=== PATIENT | female | born 1990 | race Caucasian/White ===

== ENCOUNTER 2017-04-24 11:50 | Emergency (ER) | payer MEDICAID, SELFPAY ==
[2017-04-24] MEDS: CYCLOBENZAPRINE 10 MG TAB PO ×3 (14:00)
[2017-04-24] MEDS: KETOROLAC 60 MG/2 ML VIAL (J1885) IM ×3 (14:02)
== END 2017-04-24 14:31 | disposition home or self-care (01) ==
LOC: M ED 11:50
DX: S30.0XXA Contusion of lower back and pelvis, initial encounter (principal); W19.XXXA Unspecified fall, initial encounter; Y92.9 Unspecified place or not applicable; Y93.9 Activity, unspecified; M54.42 Lumbago with sciatica, left side; L03.211 Cellulitis of face; F31.9 Bipolar disorder, unspecified; F41.9 Anxiety disorder, unspecified; J45.909 Unspecified asthma, uncomplicated; F17.200 Nicotine dependence, unspecified, uncomplicated; Z79.899 Other long term (current) drug therapy; Z91.018 Allergy to other foods
CPT/HCPCS: J1885

== ENCOUNTER 2017-06-05 10:34 | Emergency (ER) | payer MEDICAID ==
[2017-06-05] MEDS: BACTRIM 160MG/800MG DS TAB PO (11:26)
[2017-06-05] MEDS: LIDOCAINE 2% W/EPIN INJ 20ML **PRES FREE INJ (11:53)
[2017-06-05] MEDS: ACETAMINOPHEN 325 MG TAB PO (12:45)
== END 2017-06-05 14:05 | disposition home or self-care (01) ==
LOC: M ED 10:34
DX: L02.411 Cutaneous abscess of right axilla (principal); N63.10 Unspecified lump in the right breast, unspecified quadrant; F17.200 Nicotine dependence, unspecified, uncomplicated; Z91.018 Allergy to other foods; Z79.899 Other long term (current) drug therapy
CPT/HCPCS: 76642

== ENCOUNTER 2017-07-09 13:16 | Emergency (ER) | payer OTHER, MEDICAID ==
[2017-07-09 15:36] LABS: ANION GAP 3 MEQ/L (8-16); BLOOD UREA NITROGEN 9 MG/DL (7-18); CALCIUM LEVEL 8.9 MG/DL (8.5-10.1); CARBON DIOXIDE LEVEL 29 MEQ/L (21-32); CHLORIDE LEVEL 108 MEQ/L (98-107); CREATININE FOR GFR 0.86 MG/DL (0.55-1.30); FREE THYROXINE INDEX 2.6 % (1.3-4.8); GLOMERULAR FILTRATION RATE > 60.0 (>60); GLUCOSE, FASTING 120 MG/DL (70-100); POTASSIUM SERUM 4.1 MEQ/L (3.5-5.1); SODIUM LEVEL 140 MEQ/L (136-145); T UPTAKE 32 % (30-39)
[2017-07-09 15:39] LABS: LITHIUM LEVEL 1.13 MEQ/L (0.60-1.20)
== END 2017-07-09 16:32 | disposition home or self-care (01) ==
LOC: M ED 13:16
DX: Z76.0 Encounter for issue of repeat prescription (principal); F31.9 Bipolar disorder, unspecified; M54.9 Dorsalgia, unspecified; Z91.018 Allergy to other foods; Z79.899 Other long term (current) drug therapy
CPT/HCPCS: 80178

== ENCOUNTER → 2017-07-23 | Outpatient (REF) | payer OTHER ==
[2017-07-23 16:02] LABS: APPEARANCE, URINE CLEAR (CLEAR); BACTERIA, URINE AUTO 1+ (NEGATIVE); BILIRUBIN, URINE AUTO NEGATIVE (NEGATIVE); BLOOD, URINE BLOOD NEGATIVE (NEGATIVE); COLOR, URINE STRAW (YELLOW); GLUCOSE, URINE (UA) AUTO NEGATIVE (NEGATIVE); KETONE, URINE AUTO NEGATIVE (NEGATIVE); LEUKOCYTE ESTERASE, URINE AUTO NEGATIVE (NEGATIVE); NITRITE, URINE AUTO NEGATIVE (NEGATIVE); PROTEIN, URINE AUTO NEGATIVE (NEGATIVE); RBC, URINE AUTO 1 /HPF (0-3); SPECIFIC GRAVITY URINE AUTO 1.003 (1.002-1.035); SQUAMOUS EPITHELIAL CELL UR AU 2 /HPF (0-6); UROBILINOGEN, URINE AUTO 0.2 mg/dL (0.0-2.0); WBC, URINE AUTO 0 /HPF (0-3)
== END ==
LOC: M SFHCPLAZ 15:37
DX: R32 Unspecified urinary incontinence (principal)

== ENCOUNTER → 2017-07-27 | Outpatient (REF) | payer OTHER ==
[2017-07-27 12:21] LABS: BASO % 0.5 % (0.0-1.0); EOS # 0.3 10^3/uL (0.0-0.50); EOS % 3.2 % (0.0-3.0); HEMATOCRIT 36.2 % (36.0-47.0); HEMOGLOBIN 11.7 g/dl (12.0-15.5); IMMATURE GRANULOCYTE % 0.4 % (0-3.0); LYMPH # 1.8 10^3/uL (1.5-6.5); LYMPH % 22.4 % (24.0-44.0); MEAN CORPUSCULAR HEMOGLOBIN 29.2 pg (27.0-33.0); MEAN CORPUSCULAR HGB CONC 32.3 g/dl (32.0-36.5); MEAN CORPUSCULAR VOLUME 90.3 fl (80.0-96.0); MONO # 0.4 10^3/uL (0.0-0.8); MONO % 4.5 % (0.0-5.0); NEUTROPHILS # 5.4 10^3/uL (1.8-7.7); PLATELET COUNT, AUTOMATED 346 10^3/uL (150-450); RED BLOOD COUNT 4.01 10^6/uL (4.00-5.40); RED CELL DISTRIBUTION WIDTH 13.4 % (11.5-14.5); WHITE BLOOD COUNT 7.8 10^3/uL (4.0-10.0)
[2017-07-27 12:33] LABS: AMORPHOUS SEDIMENT SMALL (NEGATIVE); APPEARANCE, URINE CLEAR (CLEAR); BACTERIA, URINE AUTO 1+ (NEGATIVE); BILIRUBIN, URINE AUTO NEGATIVE (NEGATIVE); BLOOD, URINE BLOOD NEGATIVE (NEGATIVE); COLOR, URINE YELLOW (YELLOW); GLUCOSE, URINE (UA) AUTO NEGATIVE (NEGATIVE); KETONE, URINE AUTO NEGATIVE (NEGATIVE); LEUKOCYTE ESTERASE, URINE AUTO 1+ (NEGATIVE); NITRITE, URINE AUTO NEGATIVE (NEGATIVE); PROTEIN, URINE AUTO NEGATIVE (NEGATIVE); RBC, URINE AUTO 1 /HPF (0-3); SPECIFIC GRAVITY URINE AUTO 1.006 (1.002-1.035); SQUAMOUS EPITHELIAL CELL UR AU 4 /HPF (0-6); UROBILINOGEN, URINE AUTO 0.2 mg/dL (0.0-2.0); WBC, URINE AUTO 2 /HPF (0-3)
[2017-07-27 12:56] LABS: PTH INTACT 59.7 PG/ML (18.5-88.0); TOTAL 25(OH) VITAMIN D 24.2 NG/ML (30.0-100.0)
[2017-07-27 12:58] LABS: ALBUMIN 3.7 GM/DL (3.2-5.2); ALBUMIN/GLOBULIN RATIO 1.16 (1.00-1.93); ALKALINE PHOSPHATASE 85 U/L (45-117); ALT/SGPT 21 U/L (12-78); ANION GAP 7 MEQ/L (8-16); AST/SGOT 10 U/L (7-37); BILIRUBIN,TOTAL 0.3 MG/DL (0.2-1.0); BLOOD UREA NITROGEN 7 MG/DL (7-18); CALCIUM LEVEL 8.3 MG/DL (8.5-10.1); CARBON DIOXIDE LEVEL 27 MEQ/L (21-32); CHLORIDE LEVEL 109 MEQ/L (98-107); CHOLESTEROL LEVEL 187 MG/DL (<200); CHOLESTEROL RISK RATIO 6.448 (<5); CREATININE FOR GFR 0.89 MG/DL (0.55-1.30); GLOMERULAR FILTRATION RATE > 60.0 (>60); GLUCOSE, FASTING 100 MG/DL (70-100); HDL CHOLESTEROL 29 MG/DL (>40); LDL CHOLESTEROL 124.8 MG/DL (<100); NON-HDL-C 158 MG/DL; POTASSIUM SERUM 4.3 MEQ/L (3.5-5.1); SODIUM LEVEL 143 MEQ/L (136-145); TOTAL PROTEIN 6.9 GM/DL (6.4-8.2); TRIGLYCERIDES LEVEL 166 MG/DL (<150)
[2017-07-27 13:17] LABS: ESTIMATED AVERAGE GLUCOSE 91 MG/DL (60-110); HEMOGLOBIN A1c 4.8 %
[2017-07-27 17:47] LABS: FREE T4 0.85 NG/DL (0.76-1.46)
== END ==
LOC: M LABDRAW1 11:03
DX: F31.9 Bipolar disorder, unspecified (principal); J45.909 Unspecified asthma, uncomplicated; E66.9 Obesity, unspecified; Z13.220 Encounter for screening for lipoid disorders; R32 Unspecified urinary incontinence; E55.9 Vitamin D deficiency, unspecified
CPT/HCPCS: 84443

== ENCOUNTER 2017-07-30 19:48 | Emergency (ER) | payer OTHER ==
[2017-07-30 21:05] LABS: HEMATOCRIT 37.6 % (36.0-47.0); HEMOGLOBIN 12.3 g/dl (12.0-15.5); MEAN CORPUSCULAR HEMOGLOBIN 29.5 pg (27.0-33.0); MEAN CORPUSCULAR HGB CONC 32.7 g/dl (32.0-36.5); MEAN CORPUSCULAR VOLUME 90.2 fl (80.0-96.0); PLATELET COUNT, AUTOMATED 330 10^3/uL (150-450); RED BLOOD COUNT 4.17 10^6/uL (4.00-5.40); RED CELL DISTRIBUTION WIDTH 13.3 % (11.5-14.5); WHITE BLOOD COUNT 7.6 10^3/uL (4.0-10.0)
[2017-07-30 21:24] LABS: CONTROL LINE HCG INT CTR LINE PRESENT; HCG, SERUM QUALITATIVE NEGATIVE (NEGATIVE)
[2017-07-30 21:29] LABS: AMPHETAMINES LEVEL URINE NEGATIVE (NEGATIVE); BARBITURATES URINE NEGATIVE (NEGATIVE); BENZODIAZEPINES URINE NEGATIVE (NEGATIVE); CANNABINOIDS URINE NEGATIVE (NEGATIVE); COCAINE METABOLITE URINE NEGATIVE (NEGATIVE); METHADONE URINE NEGATIVE (NEGATIVE); OPIATES URINE NEGATIVE (NEGATIVE); PHENCYCLIDINE URINE NEGATIVE (NEGATIVE)
[2017-07-30 21:50] LABS: ACETAMINOPHEN LEVEL < 2.0 UG/ML (10.0-30.0); ALBUMIN/GLOBULIN RATIO 1.11 (1.00-1.93); ALKALINE PHOSPHATASE 97 U/L (45-117); ALT/SGPT 20 U/L (12-78); ANION GAP 6 MEQ/L (8-16); AST/SGOT 11 U/L (7-37); BILIRUBIN,DIRECT < 0.1 MG/DL (0.0-0.2); BILIRUBIN,TOTAL 0.3 MG/DL (0.2-1.0); BLOOD UREA NITROGEN 5 MG/DL (7-18); CALCIUM LEVEL 8.7 MG/DL (8.5-10.1); CARBON DIOXIDE LEVEL 29 MEQ/L (21-32); CHLORIDE LEVEL 107 MEQ/L (98-107); CREATININE FOR GFR 0.91 MG/DL (0.55-1.30); ETHYL ALCOHOL (ETHANOL) < 0.003 % (0.000-0.010); GLOMERULAR FILTRATION RATE > 60.0 (>60); GLUCOSE, FASTING 91 MG/DL (70-100); POTASSIUM SERUM 4.1 MEQ/L (3.5-5.1); SALICYLATE LEVEL 1.8 MG/DL (5.0-30.0); SODIUM LEVEL 142 MEQ/L (136-145); TOTAL PROTEIN 7.6 GM/DL (6.4-8.2)
[2017-07-30 21:51] LABS: LITHIUM LEVEL 0.37 MEQ/L (0.60-1.20)
[2017-08-02 14:12] LABS: LAMOTRIGINE (LAMICTAL) 1.8 ug/mL (2.0-20.0)
== END 2017-07-30 23:23 | disposition home or self-care (01) ==
LOC: M ED 19:48
DX: Z76.0 Encounter for issue of repeat prescription (principal); J45.909 Unspecified asthma, uncomplicated; F41.9 Anxiety disorder, unspecified; F33.9 Major depressive disorder, recurrent, unspecified; Z79.899 Other long term (current) drug therapy; Z91.018 Allergy to other foods; F17.210 Nicotine dependence, cigarettes, uncomplicated
CPT/HCPCS: 80320

== ENCOUNTER 2017-08-04 11:08 | Emergency (ER) | payer OTHER ==
[2017-08-04] MEDS: NS 1,000 ML IV (12:01)
[2017-08-04] MEDS: ONDANSETRON 4MG/2ML VIAL (J2405) IV (12:01)
[2017-08-04] MEDS: MORPHINE 4 MG/ML 1ML VIAL/SYRINGE (J2270) IV (12:02)
[2017-08-04] MEDS: AMPICILLIN SOD/SULBACTAM SOD 3 GM in D5W MINI-BAG PLUS 100 ML IV (12:02)
[2017-08-04 12:11] LABS: BASO % 0.4 % (0.0-1.0); EOS # 0.3 10^3/uL (0.0-0.50); EOS % 2.6 % (0.0-3.0); HEMATOCRIT 35.7 % (36.0-47.0); IMMATURE GRANULOCYTE % 0.2 % (0-3.0); LYMPH # 1.4 10^3/uL (1.5-6.5); LYMPH % 15.1 % (24.0-44.0); MEAN CORPUSCULAR HEMOGLOBIN 29.7 pg (27.0-33.0); MEAN CORPUSCULAR HGB CONC 33.6 g/dl (32.0-36.5); MEAN CORPUSCULAR VOLUME 88.4 fl (80.0-96.0); MONO # 0.5 10^3/uL (0.0-0.8); MONO % 5.4 % (0.0-5.0); NEUTROPHILS # 7.2 10^3/uL (1.8-7.7); NEUTROPHILS % 76.3 % (36.0-66.0); PLATELET COUNT, AUTOMATED 333 10^3/uL (150-450); RED BLOOD COUNT 4.04 10^6/uL (4.00-5.40); RED CELL DISTRIBUTION WIDTH 13.3 % (11.5-14.5); WHITE BLOOD COUNT 9.4 10^3/uL (4.0-10.0)
[2017-08-04 12:44] LABS: ANION GAP 5 MEQ/L (8-16); BLOOD UREA NITROGEN 9 MG/DL (7-18); CARBON DIOXIDE LEVEL 26 MEQ/L (21-32); CHLORIDE LEVEL 109 MEQ/L (98-107); CREATININE FOR GFR 0.79 MG/DL (0.55-1.30); GLOMERULAR FILTRATION RATE > 60.0 (>60); GLUCOSE, FASTING 88 MG/DL (70-100); POTASSIUM SERUM 4.4 MEQ/L (3.5-5.1); SODIUM LEVEL 140 MEQ/L (136-145)
[2017-08-04 12:44] LABS: LACTIC ACID SEPSIS PROTOCOL 0.9 MMOL/L (0.4-2.0)
[2017-08-04 12:45] LABS: ALBUMIN 3.8 GM/DL (3.2-5.2); ALBUMIN/GLOBULIN RATIO 1.09 (1.00-1.93); ALKALINE PHOSPHATASE 97 U/L (45-117); ALT/SGPT 23 U/L (12-78); AST/SGOT 13 U/L (7-37); BILIRUBIN,DIRECT < 0.1 MG/DL (0.0-0.2); BILIRUBIN,TOTAL 0.2 MG/DL (0.2-1.0); C REACTIVE PROTEIN QUANTITATIV 2.11 MG/DL (0.00-0.30); CALCIUM LEVEL 8.7 MG/DL (8.5-10.1); TOTAL PROTEIN 7.3 GM/DL (6.4-8.2)
[2017-08-04] MEDS ORDERED: ISOVUE-370 76% 100ML VIAL (Q9967) As Ordered (13:01)
[2017-08-04 13:10] LABS: LITHIUM LEVEL 0.64 MEQ/L (0.60-1.20)
[2017-08-04] MEDS: PERCOCET 5MG/325MG TAB PO (14:29)
== END 2017-08-04 14:39 | disposition home or self-care (01) ==
LOC: M ED 11:08
DX: J01.00 Acute maxillary sinusitis, unspecified (principal); R68.84 Jaw pain; J45.909 Unspecified asthma, uncomplicated; F32.9 Major depressive disorder, single episode, unspecified; F17.210 Nicotine dependence, cigarettes, uncomplicated; Z91.018 Allergy to other foods; Z79.899 Other long term (current) drug therapy
CPT/HCPCS: J2270

== ENCOUNTER 2017-08-05 09:01 | Inpatient (IN) | payer OTHER ==
[2017-08-05] MEDS: dexameTHASONE 4 MG/ML 1ML VIAL (J1100) IV (09:51)
[2017-08-05] MEDS: NS 1,000 ML IV ×2 (09:52→17:57)
[2017-08-05 10:02] LABS: BASO % 0.3 % (0.0-1.0); EOS # 0.2 10^3/uL (0.0-0.50); EOS % 1.4 % (0.0-3.0); HEMATOCRIT 35.9 % (36.0-47.0); IMMATURE GRANULOCYTE % 0.4 % (0-3.0); LYMPH # 1.7 10^3/uL (1.5-6.5); LYMPH % 13.9 % (24.0-44.0); MEAN CORPUSCULAR HEMOGLOBIN 29.7 pg (27.0-33.0); MEAN CORPUSCULAR HGB CONC 33.4 g/dl (32.0-36.5); MEAN CORPUSCULAR VOLUME 88.9 fl (80.0-96.0); MONO # 0.6 10^3/uL (0.0-0.8); MONO % 4.8 % (0.0-5.0); NEUTROPHILS # 9.5 10^3/uL (1.8-7.7); NEUTROPHILS % 79.2 % (36.0-66.0); PLATELET COUNT, AUTOMATED 325 10^3/uL (150-450); RED BLOOD COUNT 4.04 10^6/uL (4.00-5.40); RED CELL DISTRIBUTION WIDTH 13.5 % (11.5-14.5)
[2017-08-05 10:06] LABS: KETONE, URINE AUTO RFX NEGATIVE (NEGATIVE); LEUKOCYTE ESTERASE UR AUTO RFX NEGATIVE (NEGATIVE); MUCUS, URINE RFX SMALL (NEGATIVE); NITRITE, URINE AUTO RFX NEGATIVE (NEGATIVE); RBC, URINE AUTO RFX 0 /HPF (0-3); SPECIFIC GRAVITY UR AUTO RFX 1.004 (1.002-1.035); SQUAM EPITHELIAL CELL UR AURFX 6 /HPF (0-6); WBC, URINE AUTO RFX 1 /HPF (0-3)
[2017-08-05 10:15] LABS: INR 0.91; PROTHROMBIN TIME 12.3 SECONDS (12.4-14.5)
[2017-08-05 10:16] LABS: PARTIAL THROMBOPLASTIN TIME 34.7 SECONDS (26.8-37.9)
[2017-08-05 10:22] LABS: ERYTHROCYTE SEDIMENTATION RATE 29 mm/hr (0-20)
[2017-08-05] MEDS: PERCOCET 5MG/325MG TAB PO ×4 (10:25→21:12)
[2017-08-05 10:30] LABS: ALBUMIN 3.8 GM/DL (3.2-5.2); ALBUMIN/GLOBULIN RATIO 1.12 (1.00-1.93); ALKALINE PHOSPHATASE 114 U/L (45-117); ALT/SGPT 19 U/L (12-78); ANION GAP 4 MEQ/L (8-16); AST/SGOT 16 U/L (7-37); BILIRUBIN,DIRECT < 0.1 MG/DL (0.0-0.2); BILIRUBIN,TOTAL 0.5 MG/DL (0.2-1.0); BLOOD UREA NITROGEN 6 MG/DL (7-18); C REACTIVE PROTEIN QUANTITATIV 6.04 MG/DL (0.00-0.30); CALCIUM LEVEL 8.5 MG/DL (8.5-10.1); CARBON DIOXIDE LEVEL 28 MEQ/L (21-32); CHLORIDE LEVEL 107 MEQ/L (98-107); CREATININE FOR GFR 0.65 MG/DL (0.55-1.30); GLOMERULAR FILTRATION RATE > 60.0 (>60); GLUCOSE, FASTING 95 MG/DL (70-100); POTASSIUM SERUM 4.3 MEQ/L (3.5-5.1); SODIUM LEVEL 139 MEQ/L (136-145); TOTAL PROTEIN 7.2 GM/DL (6.4-8.2)
[2017-08-05] MEDS: AMPICILLIN SOD/SULBACTAM SOD 3 GM in D5W MINI-BAG PLUS 100 ML IV (10:39)
[2017-08-05] MEDS ORDERED: ISOVUE-370 76% 100ML VIAL (Q9967) As Ordered (13:16)
[2017-08-05 14:11] LABS: BEDSIDE GLUCOSE 126 MG/DL (70-105)
[2017-08-05] MEDS ORDERED: MORPHINE 4 MG/ML 1ML VIAL/SYRINGE (J2270) IV (17:45)
[2017-08-05] MEDS ORDERED: IPRATROPIUM 0.5MG/ALBUTEROL 2.5MG INH SOL UD 3ML (DUONEB)(J7620) NEB (17:45)
[2017-08-05] MEDS ORDERED: ONDANSETRON 4MG/2ML VIAL (J2405) IV (17:45)
[2017-08-05] MEDS: PIPERACILLIN/TAZOBACTAM SOD 3.375 GM in D5W MINI-BAG PLUS 50 ML IV ×2 (17:57→23:50)
[2017-08-05] MEDS: hydrOXYzine 50 MG TAB PO (17:58)
[2017-08-05] MEDS: IPRATROPIUM 0.5MG/ALBUTEROL 2.5MG INH SOL UD 3ML (DUONEB)(J7620) NEB (20:00)
[2017-08-05] MEDS: SENOKOT S TAB PO (20:54)
[2017-08-05] MEDS: AMITRIPTYLINE 50 MG TAB PO (20:54)
[2017-08-05] MEDS: cloNIDine 0.1 MG TAB PO (20:54)
[2017-08-05] MEDS: HEPARIN SOD (PORCINE) 5000 UNITS/ML VIAL SC (20:55)
[2017-08-05] MEDS: LITHIUM CARBONATE 300 MG CAP PO (20:55)
[2017-08-05] MEDS: lamoTRIgine 100MG TAB PO (20:55)
[2017-08-06] MEDS: IPRATROPIUM 0.5MG/ALBUTEROL 2.5MG INH SOL UD 3ML (DUONEB)(J7620) NEB ×4 (02:00→20:00)
[2017-08-06] MEDS: PERCOCET 5MG/325MG TAB PO ×6 (04:29→22:54)
[2017-08-06] MEDS: PIPERACILLIN/TAZOBACTAM SOD 3.375 GM in D5W MINI-BAG PLUS 50 ML IV (05:04)
[2017-08-06] MEDS: HEPARIN SOD (PORCINE) 5000 UNITS/ML VIAL SC ×3 (05:05→21:22)
[2017-08-06 06:50] LABS: HEMATOCRIT 32.5 % (36.0-47.0); HEMOGLOBIN 10.5 g/dl (12.0-15.5); MEAN CORPUSCULAR HEMOGLOBIN 29.2 pg (27.0-33.0); MEAN CORPUSCULAR HGB CONC 32.3 g/dl (32.0-36.5); MEAN CORPUSCULAR VOLUME 90.3 fl (80.0-96.0); PLATELET COUNT, AUTOMATED 291 10^3/uL (150-450); RED CELL DISTRIBUTION WIDTH 13.7 % (11.5-14.5)
[2017-08-06 07:20] LABS: ANION GAP 7 MEQ/L (8-16); BLOOD UREA NITROGEN 5 MG/DL (7-18); CALCIUM LEVEL 8.4 MG/DL (8.5-10.1); CARBON DIOXIDE LEVEL 25 MEQ/L (21-32); CHLORIDE LEVEL 109 MEQ/L (98-107); CREATININE FOR GFR 0.67 MG/DL (0.55-1.30); GLOMERULAR FILTRATION RATE > 60.0 (>60); GLUCOSE, FASTING 111 MG/DL (70-100); MAGNESIUM LEVEL 2.5 MG/DL (1.8-2.4); POTASSIUM SERUM 4.1 MEQ/L (3.5-5.1); SODIUM LEVEL 141 MEQ/L (136-145)
[2017-08-06 07:21] LABS: LITHIUM LEVEL 0.51 MEQ/L (0.60-1.20)
[2017-08-06] MEDS: lamoTRIgine 100MG TAB PO ×2 (09:14→21:21)
[2017-08-06] MEDS: SENOKOT S TAB PO ×2 (09:14→21:21)
[2017-08-06] MEDS: VITAMIN D 1,000 INTERNATIONAL UNITS TABLET PO (09:15)
[2017-08-06] MEDS: LITHIUM CARBONATE 300 MG CAP PO ×2 (09:18→21:21)
[2017-08-06] MEDS: ATORVASTATIN 20 MG TAB PO (09:18)
[2017-08-06] MEDS: cloNIDine 0.1 MG TAB PO ×2 (09:19→21:22)
[2017-08-06] MEDS: AMPICILLIN SOD/SULBACTAM SOD 3 GM in D5W MINI-BAG PLUS 100 ML IV ×3 (12:37→23:00)
[2017-08-06] MEDS: AMITRIPTYLINE 50 MG TAB PO (21:21)
[2017-08-07] MEDS: IPRATROPIUM 0.5MG/ALBUTEROL 2.5MG INH SOL UD 3ML (DUONEB)(J7620) NEB ×4 (01:33→20:00)
[2017-08-07] MEDS: PERCOCET 5MG/325MG TAB PO ×4 (05:56→23:37)
[2017-08-07] MEDS: AMPICILLIN SOD/SULBACTAM SOD 3 GM in D5W MINI-BAG PLUS 100 ML IV ×5 (05:57→23:37)
[2017-08-07] MEDS: HEPARIN SOD (PORCINE) 5000 UNITS/ML VIAL SC ×3 (05:57→20:55)
[2017-08-07 06:24] LABS: HEMATOCRIT 36.1 % (36.0-47.0); HEMOGLOBIN 11.3 g/dl (12.0-15.5); MEAN CORPUSCULAR HEMOGLOBIN 28.9 pg (27.0-33.0); MEAN CORPUSCULAR HGB CONC 31.3 g/dl (32.0-36.5); MEAN CORPUSCULAR VOLUME 92.3 fl (80.0-96.0); PLATELET COUNT, AUTOMATED 294 10^3/uL (150-450); RED BLOOD COUNT 3.91 10^6/uL (4.00-5.40); WHITE BLOOD COUNT 6.8 10^3/uL (4.0-10.0)
[2017-08-07 06:39] LABS: ANION GAP 4 MEQ/L (8-16); BLOOD UREA NITROGEN 6 MG/DL (7-18); C REACTIVE PROTEIN QUANTITATIV 1.95 MG/DL (0.00-0.30); CALCIUM LEVEL 8.4 MG/DL (8.5-10.1); CARBON DIOXIDE LEVEL 28 MEQ/L (21-32); CHLORIDE LEVEL 110 MEQ/L (98-107); CREATININE FOR GFR 0.75 MG/DL (0.55-1.30); GLOMERULAR FILTRATION RATE > 60.0 (>60); GLUCOSE, FASTING 90 MG/DL (70-100); MAGNESIUM LEVEL 2.3 MG/DL (1.8-2.4); POTASSIUM SERUM 4.1 MEQ/L (3.5-5.1); SODIUM LEVEL 142 MEQ/L (136-145)
[2017-08-07] MEDS: VITAMIN D 1,000 INTERNATIONAL UNITS TABLET PO (11:09)
[2017-08-07] MEDS: lamoTRIgine 100MG TAB PO ×2 (11:09→20:54)
[2017-08-07] MEDS: LITHIUM CARBONATE 300 MG CAP PO ×2 (11:10→20:55)
[2017-08-07] MEDS: cloNIDine 0.1 MG TAB PO ×2 (11:10→20:54)
[2017-08-07] MEDS: SENOKOT S TAB PO ×2 (11:10→20:54)
[2017-08-07] MEDS: ATORVASTATIN 20 MG TAB PO (11:11)
[2017-08-07] MEDS: IBUPROFEN 600 MG TAB PO (15:14)
[2017-08-07] MEDS: DOCUSATE SODIUM 100 MG CAP PO (20:54)
[2017-08-07] MEDS: AMITRIPTYLINE 50 MG TAB PO (20:55)
[2017-08-07] MEDS: MOM 30ML SUSPENSION UDC PO (20:55)
[2017-08-08] MEDS: IPRATROPIUM 0.5MG/ALBUTEROL 2.5MG INH SOL UD 3ML (DUONEB)(J7620) NEB ×4 (02:00→20:00)
[2017-08-08] MEDS: IBUPROFEN 600 MG TAB PO ×2 (02:27→10:06)
[2017-08-08] MEDS: HEPARIN SOD (PORCINE) 5000 UNITS/ML VIAL SC ×3 (05:11→21:43)
[2017-08-08] MEDS: AMPICILLIN SOD/SULBACTAM SOD 3 GM in D5W MINI-BAG PLUS 100 ML IV ×5 (05:11→23:19)
[2017-08-08 06:28] LABS: HEMATOCRIT 32.9 % (36.0-47.0); HEMOGLOBIN 10.3 g/dl (12.0-15.5); MEAN CORPUSCULAR HEMOGLOBIN 29.1 pg (27.0-33.0); MEAN CORPUSCULAR HGB CONC 31.3 g/dl (32.0-36.5); MEAN CORPUSCULAR VOLUME 92.9 fl (80.0-96.0); PLATELET COUNT, AUTOMATED 289 10^3/uL (150-450); RED BLOOD COUNT 3.54 10^6/uL (4.00-5.40); RED CELL DISTRIBUTION WIDTH 13.8 % (11.5-14.5); WHITE BLOOD COUNT 5.2 10^3/uL (4.0-10.0)
[2017-08-08 06:39] LABS: ANION GAP 2 MEQ/L (8-16); BLOOD UREA NITROGEN 6 MG/DL (7-18); C REACTIVE PROTEIN QUANTITATIV 1.25 MG/DL (0.00-0.30); CALCIUM LEVEL 8.5 MG/DL (8.5-10.1); CARBON DIOXIDE LEVEL 33 MEQ/L (21-32); CHLORIDE LEVEL 106 MEQ/L (98-107); CREATININE FOR GFR 0.79 MG/DL (0.55-1.30); GLOMERULAR FILTRATION RATE > 60.0 (>60); GLUCOSE, FASTING 99 MG/DL (70-100); MAGNESIUM LEVEL 2.5 MG/DL (1.8-2.4); POTASSIUM SERUM 4.3 MEQ/L (3.5-5.1); SODIUM LEVEL 141 MEQ/L (136-145)
[2017-08-08] MEDS: PERCOCET 5MG/325MG TAB PO ×4 (06:56→23:10)
[2017-08-08] MEDS: VITAMIN D 1,000 INTERNATIONAL UNITS TABLET PO (10:05)
[2017-08-08] MEDS: ATORVASTATIN 20 MG TAB PO (10:05)
[2017-08-08] MEDS: DOCUSATE SODIUM 100 MG CAP PO ×2 (10:06→21:43)
[2017-08-08] MEDS: lamoTRIgine 100MG TAB PO ×2 (10:06→21:43)
[2017-08-08] MEDS: LITHIUM CARBONATE 300 MG CAP PO ×2 (10:06→21:44)
[2017-08-08] MEDS: cloNIDine 0.1 MG TAB PO ×2 (10:07→21:44)
[2017-08-08] MEDS: SENOKOT S TAB PO ×2 (10:08→21:44)
[2017-08-08] MEDS: AMITRIPTYLINE 50 MG TAB PO (21:44)
[2017-08-09] MEDS: IPRATROPIUM 0.5MG/ALBUTEROL 2.5MG INH SOL UD 3ML (DUONEB)(J7620) NEB ×4 (02:00→20:00)
[2017-08-09] MEDS: AMPICILLIN SOD/SULBACTAM SOD 3 GM in D5W MINI-BAG PLUS 100 ML IV ×4 (05:23→23:52)
[2017-08-09] MEDS: HEPARIN SOD (PORCINE) 5000 UNITS/ML VIAL SC ×3 (05:23→20:52)
[2017-08-09] MEDS: PERCOCET 5MG/325MG TAB PO ×4 (05:30→18:32)
[2017-08-09 06:10] LABS: HEMATOCRIT 33.6 % (36.0-47.0); HEMOGLOBIN 10.7 g/dl (12.0-15.5); MEAN CORPUSCULAR HEMOGLOBIN 29.2 pg (27.0-33.0); MEAN CORPUSCULAR HGB CONC 31.8 g/dl (32.0-36.5); MEAN CORPUSCULAR VOLUME 91.8 fl (80.0-96.0); PLATELET COUNT, AUTOMATED 310 10^3/uL (150-450); RED BLOOD COUNT 3.66 10^6/uL (4.00-5.40); RED CELL DISTRIBUTION WIDTH 13.5 % (11.5-14.5); WHITE BLOOD COUNT 5.9 10^3/uL (4.0-10.0)
[2017-08-09] MEDS: DOCUSATE SODIUM 100 MG CAP PO ×2 (08:10→20:51)
[2017-08-09] MEDS: LITHIUM CARBONATE 300 MG CAP PO ×2 (08:10→20:50)
[2017-08-09] MEDS: lamoTRIgine 100MG TAB PO ×2 (08:10→20:51)
[2017-08-09] MEDS: SENOKOT S TAB PO ×2 (08:10→20:51)
[2017-08-09] MEDS: VITAMIN D 1,000 INTERNATIONAL UNITS TABLET PO (08:10)
[2017-08-09] MEDS: cloNIDine 0.1 MG TAB PO ×2 (08:11→20:52)
[2017-08-09] MEDS: ATORVASTATIN 20 MG TAB PO (08:11)
[2017-08-09 08:25] LABS: ANION GAP 4 MEQ/L (8-16); BLOOD UREA NITROGEN 5 MG/DL (7-18); CALCIUM LEVEL 8.8 MG/DL (8.5-10.1); CARBON DIOXIDE LEVEL 32 MEQ/L (21-32); CHLORIDE LEVEL 105 MEQ/L (98-107); CREATININE FOR GFR 0.77 MG/DL (0.55-1.30); GLOMERULAR FILTRATION RATE > 60.0 (>60); GLUCOSE, FASTING 81 MG/DL (70-100); MAGNESIUM LEVEL 2.3 MG/DL (1.8-2.4); POTASSIUM SERUM 4.4 MEQ/L (3.5-5.1); SODIUM LEVEL 141 MEQ/L (136-145)
[2017-08-09] MEDS: AMITRIPTYLINE 50 MG TAB PO (20:51)
[2017-08-10] MEDS: IPRATROPIUM 0.5MG/ALBUTEROL 2.5MG INH SOL UD 3ML (DUONEB)(J7620) NEB ×2 (01:48→07:26)
[2017-08-10] MEDS: PERCOCET 5MG/325MG TAB PO ×2 (02:52→08:39)
[2017-08-10] MEDS: AMPICILLIN SOD/SULBACTAM SOD 3 GM in D5W MINI-BAG PLUS 100 ML IV ×2 (05:50→11:54)
[2017-08-10] MEDS: HEPARIN SOD (PORCINE) 5000 UNITS/ML VIAL SC (05:50)
[2017-08-10 06:04] LABS: HEMATOCRIT 33.1 % (36.0-47.0); HEMOGLOBIN 10.6 g/dl (12.0-15.5); MEAN CORPUSCULAR HEMOGLOBIN 29.1 pg (27.0-33.0); MEAN CORPUSCULAR VOLUME 90.9 fl (80.0-96.0); PLATELET COUNT, AUTOMATED 314 10^3/uL (150-450); RED BLOOD COUNT 3.64 10^6/uL (4.00-5.40); RED CELL DISTRIBUTION WIDTH 13.5 % (11.5-14.5)
[2017-08-10 06:18] LABS: ANION GAP 3 MEQ/L (8-16); BLOOD UREA NITROGEN 6 MG/DL (7-18); C REACTIVE PROTEIN QUANTITATIV 1.02 MG/DL (0.00-0.30); CALCIUM LEVEL 8.7 MG/DL (8.5-10.1); CARBON DIOXIDE LEVEL 31 MEQ/L (21-32); CHLORIDE LEVEL 105 MEQ/L (98-107); GLOMERULAR FILTRATION RATE > 60.0 (>60); GLUCOSE, FASTING 87 MG/DL (70-100); MAGNESIUM LEVEL 2.4 MG/DL (1.8-2.4); POTASSIUM SERUM 4.1 MEQ/L (3.5-5.1); SODIUM LEVEL 139 MEQ/L (136-145)
[2017-08-10 08:06] LABS: LAMOTRIGINE (LAMICTAL) 3.6 ug/mL (2.0-20.0)
[2017-08-10] MEDS: DOCUSATE SODIUM 100 MG CAP PO (08:34)
[2017-08-10] MEDS: lamoTRIgine 100MG TAB PO (08:34)
[2017-08-10] MEDS: ATORVASTATIN 20 MG TAB PO (08:34)
[2017-08-10] MEDS: VITAMIN D 1,000 INTERNATIONAL UNITS TABLET PO (08:34)
[2017-08-10] MEDS: SENOKOT S TAB PO (08:35)
[2017-08-10] MEDS: cloNIDine 0.1 MG TAB PO (08:35)
[2017-08-10] MEDS: LITHIUM CARBONATE 300 MG CAP PO (08:35)
== END 2017-08-10 12:33 | disposition home or self-care (01) | DRG 383 ==
LOC: M ED 09:01 → M ED INP 17:34 → M MSPAV 19:40
DX: L03.211 Cellulitis of face (principal); Z68.43 Body mass index [BMI] 50.0-59.9, adult; E66.01 Morbid (severe) obesity due to excess calories; F31.9 Bipolar disorder, unspecified; F29 Unspecified psychosis not due to a substance or known physiological condition; K02.9 Dental caries, unspecified; F17.210 Nicotine dependence, cigarettes, uncomplicated; K04.7 Periapical abscess without sinus; J45.909 Unspecified asthma, uncomplicated; E78.5 Hyperlipidemia, unspecified; Z98.51 Tubal ligation status; Z79.899 Other long term (current) drug therapy; Z91.018 Allergy to other foods

== ENCOUNTER → 2017-09-21 | Outpatient (REF) | payer OTHER ==
[2017-09-21 17:23] LABS: LITHIUM LEVEL 0.82 MEQ/L (0.60-1.20)
== END ==
LOC: M LABDRAW1 15:44
DX: F31.9 Bipolar disorder, unspecified (principal)

== ENCOUNTER → 2017-10-27 | Outpatient (REF) | payer OTHER ==
[2017-10-27 13:51] LABS: BASO % 0.5 % (0.0-1.0); EOS # 0.2 10^3/uL (0.0-0.50); EOS % 2.5 % (0.0-3.0); HEMATOCRIT 32.5 % (36.0-47.0); HEMOGLOBIN 10.5 g/dl (12.0-15.5); IMMATURE GRANULOCYTE % 0.4 % (0-3.0); LYMPH # 1.5 10^3/uL (1.5-6.5); LYMPH % 19.1 % (24.0-44.0); MEAN CORPUSCULAR HEMOGLOBIN 29.3 pg (27.0-33.0); MEAN CORPUSCULAR HGB CONC 32.3 g/dl (32.0-36.5); MEAN CORPUSCULAR VOLUME 90.8 fl (80.0-96.0); MONO # 0.4 10^3/uL (0.0-0.8); MONO % 4.9 % (0.0-5.0); NEUTROPHILS # 5.7 10^3/uL (1.8-7.7); NEUTROPHILS % 72.6 % (36.0-66.0); PLATELET COUNT, AUTOMATED 332 10^3/uL (150-450); RED BLOOD COUNT 3.58 10^6/uL (4.00-5.40); RED CELL DISTRIBUTION WIDTH 13.7 % (11.5-14.5); WHITE BLOOD COUNT 7.9 10^3/uL (4.0-10.0)
[2017-10-27 14:19] LABS: ALBUMIN 3.6 GM/DL (3.2-5.2); ALBUMIN/GLOBULIN RATIO 1.16 (1.00-1.93); ALKALINE PHOSPHATASE 99 U/L (45-117); ALT/SGPT 20 U/L (12-78); ANION GAP 7 MEQ/L (8-16); AST/SGOT 12 U/L (7-37); BILIRUBIN,TOTAL 0.2 MG/DL (0.2-1.0); BLOOD UREA NITROGEN 7 MG/DL (7-18); CALCIUM LEVEL 8.5 MG/DL (8.5-10.1); CARBON DIOXIDE LEVEL 29 MEQ/L (21-32); CHLORIDE LEVEL 106 MEQ/L (98-107); CHOLESTEROL LEVEL 124 MG/DL (<200); CHOLESTEROL RISK RATIO 4.428 (<5); CREATININE FOR GFR 0.84 MG/DL (0.55-1.30); FREE T4 0.75 NG/DL (0.76-1.46); GLOMERULAR FILTRATION RATE > 60.0 (>60); GLUCOSE, FASTING 80 MG/DL (70-100); HDL CHOLESTEROL 28 MG/DL (>40); LDL CHOLESTEROL 62.2 MG/DL (<100); NON-HDL-C 96 MG/DL; SODIUM LEVEL 142 MEQ/L (136-145); TOTAL PROTEIN 6.7 GM/DL (6.4-8.2); TRIGLYCERIDES LEVEL 169 MG/DL (<150)
[2017-10-27 14:24] LABS: LITHIUM LEVEL 1.47 MEQ/L (0.60-1.20)
== END ==
LOC: M LABDRAW1 13:29
DX: F31.9 Bipolar disorder, unspecified (principal); R94.6 Abnormal results of thyroid function studies; E78.5 Hyperlipidemia, unspecified
CPT/HCPCS: 80178

== ENCOUNTER → 2017-11-09 | Outpatient (REF) | payer OTHER ==
[2017-11-09 16:19] LABS: BASO % 0.3 % (0.0-1.0); EOS # 0.2 10^3/uL (0.0-0.50); EOS % 3.2 % (0.0-3.0); HEMOGLOBIN 11.4 g/dl (12.0-15.5); IMMATURE GRANULOCYTE % 0.3 % (0-3.0); LYMPH # 1.7 10^3/uL (1.5-6.5); LYMPH % 24.4 % (24.0-44.0); MEAN CORPUSCULAR HEMOGLOBIN 29.7 pg (27.0-33.0); MEAN CORPUSCULAR HGB CONC 31.7 g/dl (32.0-36.5); MEAN CORPUSCULAR VOLUME 93.8 fl (80.0-96.0); MONO # 0.4 10^3/uL (0.0-0.8); MONO % 5.2 % (0.0-5.0); NEUTROPHILS # 4.6 10^3/uL (1.8-7.7); NEUTROPHILS % 66.6 % (36.0-66.0); PLATELET COUNT, AUTOMATED 298 10^3/uL (150-450); RED BLOOD COUNT 3.84 10^6/uL (4.00-5.40); RED CELL DISTRIBUTION WIDTH 14.2 % (11.5-14.5); WHITE BLOOD COUNT 6.9 10^3/uL (4.0-10.0)
[2017-11-09 16:40] LABS: FREE T4 0.69 NG/DL (0.76-1.46)
[2017-11-09 16:44] LABS: LITHIUM LEVEL 0.36 MEQ/L (0.60-1.20)
== END ==
LOC: M LABDRAW1 12:49
DX: F31.9 Bipolar disorder, unspecified (principal)

== ENCOUNTER 2017-12-07 08:22 | Inpatient (IN) | payer OTHER ==
[2017-12-07] MEDS: NS 1,000 ML IV ×2 (08:59→09:30)
[2017-12-07] MEDS: diphenhydrAMINE INJ 50MG/ML VIAL (J1200) IV (08:59)
[2017-12-07 09:13] LABS: HEMATOCRIT 38.1 % (36.0-47.0); HEMOGLOBIN 12.4 g/dl (12.0-15.5); MEAN CORPUSCULAR HEMOGLOBIN 29.2 pg (27.0-33.0); MEAN CORPUSCULAR HGB CONC 32.5 g/dl (32.0-36.5); MEAN CORPUSCULAR VOLUME 89.9 fl (80.0-96.0); PLATELET COUNT, AUTOMATED 303 10^3/uL (150-450); RED BLOOD COUNT 4.24 10^6/uL (4.00-5.40); RED CELL DISTRIBUTION WIDTH 13.4 % (11.5-14.5); WHITE BLOOD COUNT 7.5 10^3/uL (4.0-10.0)
[2017-12-07 09:44] LABS: CONTROL LINE HCG INT CTR LINE PRESENT; HCG, SERUM QUALITATIVE NEGATIVE (NEGATIVE)
[2017-12-07 09:52] LABS: AMPHETAMINES LEVEL URINE NEGATIVE (NEGATIVE); BARBITURATES URINE NEGATIVE (NEGATIVE); BENZODIAZEPINES URINE NEGATIVE (NEGATIVE); CANNABINOIDS URINE NEGATIVE (NEGATIVE); COCAINE METABOLITE URINE NEGATIVE (NEGATIVE); METHADONE URINE NEGATIVE (NEGATIVE); OPIATES URINE NEGATIVE (NEGATIVE); PHENCYCLIDINE URINE NEGATIVE (NEGATIVE)
[2017-12-07 10:19] LABS: ACETAMINOPHEN LEVEL < 2.0 UG/ML (10.0-30.0); ALBUMIN 3.6 GM/DL (3.2-5.2); ALKALINE PHOSPHATASE 95 U/L (45-117); ALT/SGPT 23 U/L (12-78); ANION GAP 5 MEQ/L (8-16); AST/SGOT 31 U/L (7-37); BILIRUBIN,DIRECT < 0.1 MG/DL (0.0-0.2); BILIRUBIN,TOTAL 0.3 MG/DL (0.2-1.0); BLOOD UREA NITROGEN 9 MG/DL (7-18); CALCIUM LEVEL 8.8 MG/DL (8.5-10.1); CARBON DIOXIDE LEVEL 24 MEQ/L (21-32); CHLORIDE LEVEL 111 MEQ/L (98-107); CPK CREATINE PHOSPHOKINASE 140 U/L (26-192); CREATININE FOR GFR 0.86 MG/DL (0.55-1.30); ETHYL ALCOHOL (ETHANOL) < 0.003 % (0.000-0.010); GLOMERULAR FILTRATION RATE > 60.0 (>60); GLUCOSE, FASTING 106 MG/DL (70-100); POTASSIUM SERUM 5.6 MEQ/L (3.5-5.1); SALICYLATE LEVEL 1.9 MG/DL (5.0-30.0); SODIUM LEVEL 140 MEQ/L (136-145); TOTAL PROTEIN 7.5 GM/DL (6.4-8.2)
[2017-12-07 10:58] LABS: ALBUMIN/GLOBULIN RATIO 1.08 (1.00-1.93)
[2017-12-07] MEDS: LORazepam 2 MG TAB PO (11:07)
[2017-12-07] MEDS ORDERED: MOM 30ML SUSPENSION UDC PO (15:00)
[2017-12-07] MEDS ORDERED: MAALOX 30 ML SUSP *UDC PO (15:00)
[2017-12-07] MEDS: LITHIUM CARBONATE 600 MG CAP PO (20:25)
[2017-12-07] MEDS: lamoTRIgine 100MG TAB PO (20:25)
[2017-12-07] MEDS: MIRTAZAPINE 15 MG TAB PO (22:17)
[2017-12-08] MEDS: ACETAMINOPHEN TAB 650MG DOSE (2X325MG) PO ×2 (07:43→17:50)
[2017-12-08] MEDS: LITHIUM CARBONATE 600 MG CAP PO ×2 (09:03→20:10)
[2017-12-08] MEDS: lamoTRIgine 100MG TAB PO ×2 (09:03→20:10)
[2017-12-08] MEDS ORDERED: ALBUTEROL 90 MCG/ACT 8GM HFA INHALER INH (10:45)
[2017-12-08] MEDS: ATORVASTATIN 20 MG TAB PO (11:14)
[2017-12-08] MEDS: VITAMIN D 1,000 INTERNATIONAL UNITS TABLET PO (11:15)
[2017-12-08] MEDS: LIDOCAINE 5% (LIDODERM) PATCH TD (11:15)
[2017-12-08 13:19] LABS: ANION GAP 5 MEQ/L (8-16); BLOOD UREA NITROGEN 10 MG/DL (7-18); CARBON DIOXIDE LEVEL 27 MEQ/L (21-32); CHLORIDE LEVEL 110 MEQ/L (98-107); CREATININE FOR GFR 0.81 MG/DL (0.55-1.30); GLOMERULAR FILTRATION RATE > 60.0 (>60); GLUCOSE, FASTING 82 MG/DL (70-100); POTASSIUM SERUM 4.3 MEQ/L (3.5-5.1); SODIUM LEVEL 142 MEQ/L (136-145)
[2017-12-08] MEDS ORDERED: LORazepam 0.5 MG TAB PO (13:30)
[2017-12-08] MEDS ORDERED: hydrOXYzine 50 MG TAB PO (13:45)
[2017-12-08] MEDS: hydrOXYzine 50 MG TAB PO (15:13)
[2017-12-08] MEDS: cloNIDine 0.1 MG TAB PO ×2 (16:06→20:10)
[2017-12-08] MEDS: MIRTAZAPINE 15 MG TAB PO (20:10)
[2017-12-08] MEDS: **NOTE PATIENT COMMENT** MISC XX (20:12)
[2017-12-08] MEDS: LORazepam 1 MG TAB PO (20:42)
[2017-12-09] MEDS: lamoTRIgine 100MG TAB PO ×2 (08:12→20:24)
[2017-12-09] MEDS: VITAMIN D 1,000 INTERNATIONAL UNITS TABLET PO (08:12)
[2017-12-09] MEDS: LORazepam 1 MG TAB PO ×2 (08:12→14:13)
[2017-12-09] MEDS: hydrOXYzine 50 MG TAB PO ×2 (08:12→20:28)
[2017-12-09] MEDS: cloNIDine 0.1 MG TAB PO ×3 (08:13→20:25)
[2017-12-09] MEDS: LITHIUM CARBONATE 600 MG CAP PO ×2 (08:13→20:24)
[2017-12-09] MEDS: ATORVASTATIN 20 MG TAB PO (08:13)
[2017-12-09] MEDS: ACETAMINOPHEN TAB 650MG DOSE (2X325MG) PO (08:14)
[2017-12-09] MEDS: LIDOCAINE 5% (LIDODERM) PATCH TD (08:17)
[2017-12-09 09:15] LABS: FREE THYROXINE INDEX 2.4 % (1.3-4.8); T UPTAKE 30 % (30-39); THYROXINE (T4) 7.9 UG/DL (4.5-12.0)
[2017-12-09] MEDS: IBUPROFEN 600 MG TAB PO ×2 (14:13→20:27)
[2017-12-09] MEDS: MIRTAZAPINE 15 MG TAB PO (20:23)
[2017-12-09] MEDS: diphenhydrAMINE 25 MG CAP PO (20:28)
[2017-12-09] MEDS: **NOTE PATIENT COMMENT** MISC XX (21:08)
[2017-12-10 00:07] LABS: LAMOTRIGINE (LAMICTAL) 1.5 ug/mL (2.0-20.0)
[2017-12-10] MEDS: hydrOXYzine 50 MG TAB PO (05:11)
[2017-12-10] MEDS: ACETAMINOPHEN TAB 650MG DOSE (2X325MG) PO (05:11)
[2017-12-10] MEDS: diphenhydrAMINE 25 MG CAP PO (08:23)
[2017-12-10] MEDS: cloNIDine 0.1 MG TAB PO (08:23)
[2017-12-10] MEDS: lamoTRIgine 100MG TAB PO (08:23)
[2017-12-10] MEDS: LITHIUM CARBONATE 600 MG CAP PO (08:23)
[2017-12-10] MEDS: ATORVASTATIN 20 MG TAB PO (08:23)
[2017-12-10] MEDS: VITAMIN D 1,000 INTERNATIONAL UNITS TABLET PO (08:23)
[2017-12-10] MEDS: LIDOCAINE 5% (LIDODERM) PATCH TD (08:24)
[2017-12-10 09:03] LABS: KETONE, URINE AUTO RFX NEGATIVE (NEGATIVE); NITRITE, URINE AUTO RFX NEGATIVE (NEGATIVE); RBC, URINE AUTO RFX 0 /HPF (0-3); SPECIFIC GRAVITY UR AUTO RFX 1.009 (1.002-1.035); SQUAM EPITHELIAL CELL UR AURFX 1 /HPF (0-6); WBC, URINE AUTO RFX 4 /HPF (0-3)
[2017-12-10 09:04] LABS: LEUKOCYTE ESTERASE UR AUTO RFX TRACE (NEGATIVE)
[2017-12-10 10:21] LABS: HEMATOCRIT 37.1 % (36.0-47.0); HEMOGLOBIN 11.7 g/dl (12.0-15.5); MEAN CORPUSCULAR HEMOGLOBIN 28.8 pg (27.0-33.0); MEAN CORPUSCULAR HGB CONC 31.5 g/dl (32.0-36.5); MEAN CORPUSCULAR VOLUME 91.4 fl (80.0-96.0); PLATELET COUNT, AUTOMATED 285 10^3/uL (150-450); RED BLOOD COUNT 4.06 10^6/uL (4.00-5.40); RED CELL DISTRIBUTION WIDTH 13.4 % (11.5-14.5); WHITE BLOOD COUNT 5.5 10^3/uL (4.0-10.0)
[2017-12-10 10:51] LABS: ALBUMIN 3.7 GM/DL (3.2-5.2); ALBUMIN/GLOBULIN RATIO 1.19 (1.00-1.93); ALKALINE PHOSPHATASE 93 U/L (45-117); ALT/SGPT 21 U/L (12-78); ANION GAP 4 MEQ/L (8-16); AST/SGOT 11 U/L (7-37); BILIRUBIN,TOTAL 0.2 MG/DL (0.2-1.0); BLOOD UREA NITROGEN 12 MG/DL (7-18); CALCIUM LEVEL 9.2 MG/DL (8.5-10.1); CARBON DIOXIDE LEVEL 28 MEQ/L (21-32); CHLORIDE LEVEL 108 MEQ/L (98-107); CREATININE FOR GFR 0.79 MG/DL (0.55-1.30); GLOMERULAR FILTRATION RATE > 60.0 (>60); GLUCOSE, FASTING 85 MG/DL (70-100); POTASSIUM SERUM 4.4 MEQ/L (3.5-5.1); SODIUM LEVEL 140 MEQ/L (136-145); TOTAL PROTEIN 6.8 GM/DL (6.4-8.2)
[2017-12-10] MEDS: IBUPROFEN 600 MG TAB PO (11:12)
== END 2017-12-10 13:52 | disposition home or self-care (01) | DRG 753 ==
LOC: M ED 08:22 → M ED INP 14:53 → M PSY 16:38
DX: F30.2 Manic episode, severe with psychotic symptoms (principal); F60.3 Borderline personality disorder; F25.9 Schizoaffective disorder, unspecified; Z79.899 Other long term (current) drug therapy; Z91.018 Allergy to other foods; F41.9 Anxiety disorder, unspecified; E66.9 Obesity, unspecified; E78.5 Hyperlipidemia, unspecified; J45.909 Unspecified asthma, uncomplicated; M54.5 Low back pain; Z68.43 Body mass index [BMI] 50.0-59.9, adult; E87.5 Hyperkalemia; E55.9 Vitamin D deficiency, unspecified; F17.200 Nicotine dependence, unspecified, uncomplicated

== ENCOUNTER 2018-01-11 20:15 | Emergency (ER) | payer OTHER ==
[2018-01-11] MEDS: CLINDAMYCIN 150 MG CAP PO (22:08)
[2018-01-11] MEDS: NORCO, ANEXSIA 5/325MG TABLET (HYDROcodone/ACETAMINOPHEN) PO (22:09)
[2018-01-11] MEDS: LIDOCAINE VISCOUS 2% SOLN 15ML UDC MT (22:09)
== END 2018-01-11 22:31 | disposition home or self-care (01) ==
LOC: M ED 20:15
DX: K04.7 Periapical abscess without sinus (principal); H92.02 Otalgia, left ear; I10 Essential (primary) hypertension; F31.9 Bipolar disorder, unspecified; F41.9 Anxiety disorder, unspecified; J45.909 Unspecified asthma, uncomplicated; M54.30 Sciatica, unspecified side
CPT/HCPCS: 99283

== ENCOUNTER → 2018-02-12 | Outpatient (CLI) | payer OTHER | LOC: M RAD 11:47 | DX: M51.26 Other intervertebral disc displacement, lumbar region (principal); M51.27 Other intervertebral disc displacement, lumbosacral region; M51.06 Intervertebral disc disorders with myelopathy, lumbar region | CPT/HCPCS: 72148 ==

== ENCOUNTER 2018-03-31 10:48 | Outpatient (RCR) | payer OTHER ==
[~2018-03-31 10:48] MED LIST: AMIT150T PO; ARIS1064 IM; ATOR1TAB21 PO; AUGM875T28 PO; BACT800T5 PO; CLEO300C2 PO; CLONI1TA PO; CYCL10TA PO; HYDR50CA2 PO; HYDR50TA70 PO; KETO10TAB PO; LAMI1TAB9 PO; LAMO200T2 PO; LITH300C PO; LITH300T2 PO; LITH600C PO; MIRT15TA3 PO; MOTR200T44 PO; NAPR-885 PO; NORCOTAB PO; OXYC1TAB23 PO; PERC5TAB12 PO; VENTAER INH; VITA500046 PO
[2018-04-26] MEDS ORDERED: TRAZ-160 (13:28)
[2018-04-26] MEDS ORDERED: ALPR0.25 (13:28)
[2018-04-26] MEDS ORDERED: IBUP-1022 (13:28)
[2018-04-26] MEDS ORDERED: PRED20TA PO (15:10)
[2018-04-26] MEDS ORDERED: ONDA4TAB6 PO (15:10)
== END 2018-04-28 ==
LOC: M PT 10:48
PROVIDERS: ATTEND Nurse Practitioner Family
DX: M51.26 Other intervertebral disc displacement, lumbar region (principal)

== ENCOUNTER → 2018-04-19 | Outpatient (REF) | payer OTHER ==
[~2018-04-19] MED LIST changes: +ALPR0.25; +IBUP-1022; +ONDA4TAB6 PO; +PRED20TA PO; +TRAZ-160
== END ==
LOC: M LABDRAW1 10:48
PROVIDERS: ATTEND Nurse Practitioner Psychiatric/Mental Health
DX: F25.0 Schizoaffective disorder, bipolar type (principal)

== ENCOUNTER 2018-04-26 10:54 | Emergency (ER) | payer OTHER ==
[~2018-04-26] VITALS: Ht 154.9 cm; Wt 127.3 kg
[~2018-04-26 10:54] MED LIST changes: -ALPR0.25; -IBUP-1022; -ONDA4TAB6 PO; -PRED20TA PO; -TRAZ-160
[2018-04-26] MEDS ORDERED: methylPREDNISolone INJ 125 MG/2 ML VIAL (J2930) IV ONE (12:00)
[2018-04-26] MEDS ORDERED: NS 1,000 ML IV ONE (12:00)
[2018-04-26] MEDS ORDERED: ALBUTEROL SULFATE 2.5 MG/0.5 ML INH NEB SOLN NEB ONE (12:00)
[2018-04-26 12:27] LABS: BASO % 0.4 % (0.0-1.0); EOS # 0.1 10^3/uL (0.0-0.50); EOS % 0.6 % (0.0-3.0); HEMATOCRIT 34.1 % (36.0-47.0); HEMOGLOBIN 11.2 g/dl (12.0-15.5); LYMPH # 0.9 10^3/uL (1.5-4.5); MEAN CORPUSCULAR HEMOGLOBIN 29.4 pg (27.0-33.0); MEAN CORPUSCULAR HGB CONC 32.8 g/dl (32.0-36.5); MEAN CORPUSCULAR VOLUME 89.5 fl (80.0-96.0); MONO # 0.4 10^3/uL (0.0-0.8); MONO % 4.4 % (0.0-5.0); NEUTROPHILS # 6.6 10^3/uL (1.8-7.7); NEUTROPHILS % 83.3 % (36.0-66.0); PLATELET COUNT, AUTOMATED 269 10^3/uL (150-450); RED BLOOD COUNT 3.81 10^6/uL (4.00-5.40); WHITE BLOOD COUNT 7.9 10^3/uL (4.0-10.0)
--- NOTE | 2018-04-26 12:30 | REP ---
Clinical: Cough and dyspnea . Comparison: None . Technique: PA and lateral. Findings: The mediastinum and cardiac silhouette are normal. The lung stock are clear and without acute consolidation, effusion, or pneumothorax. The skeletal structures are intact and normal. Impression: 1. No acute cardiopulmonary process. Electronically Signed by Darren Rodriguez MD 04/26/2018 12:21 P
[2018-04-26 12:55] LABS: ALT/SGPT 19 U/L (12-78); BILIRUBIN,DIRECT < 0.1 MG/DL (0.0-0.2); BILIRUBIN,TOTAL 0.2 MG/DL (0.2-1.0); BLOOD UREA NITROGEN 7 MG/DL (7-18); CARBON DIOXIDE LEVEL 22 MEQ/L (21-32); CHLORIDE LEVEL 112 MEQ/L (98-107); CREATININE FOR GFR 0.62 MG/DL (0.55-1.30); GLOMERULAR FILTRATION RATE > 60.0 (>60); GLUCOSE, FASTING 90 MG/DL (70-100); LIPASE 38 U/L (73-393); POTASSIUM SERUM 3.5 MEQ/L (3.5-5.1); SODIUM LEVEL 144 MEQ/L (136-145); TOTAL PROTEIN 5.6 GM/DL (6.4-8.2)
[2018-04-26] MEDS ORDERED: TRAZ-160 (13:28)
[2018-04-26] MEDS ORDERED: ALPR0.25 (13:28)
[2018-04-26] MEDS ORDERED: IBUP-1022 (13:28)
--- NOTE | 2018-04-26 14:19 | REP ---
RIGHT UPPER QUADRANT ULTRASOUND: Real-time sonographic evaluation of the right upper quadrant performed. Gallbladder demonstrates no evidence of intraluminal sludge or calculi, wall thickening or pericholecystic fluid. There is no intrahepatic or extrahepatic biliary dilatation, common bile duct measuring 5 mm. Patient was tender in the right upper quadrant. There appears to be subtle increased echotexture of the liver suggesting mild fatty infiltration. No gross liver or pancreatic mass is seen, pancreas not optimally seen due to overlying bowel gas and body habitus. Right kidney demonstrates no hydronephrosis with normal size 10.1 cm in length. IMPRESSION: Possible mild fatty infiltration of the liver. Otherwise negative right upper quadrant ultrasound. Electronically Signed by Elkin Quevedo MD 04/26/2018 02:32 P
[2018-04-26] MEDS ORDERED: ONDA4TAB6 PO (15:10)
[2018-04-26] MEDS ORDERED: PRED20TA PO (15:10)
[2018-04-26 15:16] VITALS: BP 138/74
== END 2018-04-26 15:18 | disposition home or self-care (01) ==
LOC: M ED 10:54
DX: J06.9 Acute upper respiratory infection, unspecified (principal); J45.901 Unspecified asthma with (acute) exacerbation; R11.10 Vomiting, unspecified
CPT/HCPCS: 71046; 76705; 80048; 80076; 81001; 83690; 85025; 96361; 96374; 99284; J2930

== ENCOUNTER 2018-05-14 10:46 | Emergency (ER) | payer OTHER ==
[~2018-05-14] VITALS: Ht 154.9 cm; Wt 129.6 kg
[~2018-05-14 10:46] MED LIST changes: +ALPR0.25 PO; +IBUP-1022; +ONDA4TAB6 PO; +PRED20TA PO; +TRAZ-160 PO
[2018-05-14] MEDS ORDERED: GABA800T4 PO (10:57)
[2018-05-14] MEDS ORDERED: PROP10TA56 PO (10:57)
[2018-05-14] MEDS: NITROGLYCERIN 0.4 MG SUBL TABLET SL PRN ×2 (11:48→11:53)
[2018-05-14 11:52] LABS: BASO % 0.3 % (0.0-1.0); EOS # 0.1 10^3/uL (0.0-0.50); HEMATOCRIT 35.7 % (36.0-47.0); HEMOGLOBIN 11.5 g/dl (12.0-15.5); LYMPH # 1.5 10^3/uL (1.5-4.5); LYMPH % 15.8 % (24.0-44.0); MEAN CORPUSCULAR HEMOGLOBIN 29.8 pg (27.0-33.0); MEAN CORPUSCULAR HGB CONC 32.2 g/dl (32.0-36.5); MEAN CORPUSCULAR VOLUME 92.5 fl (80.0-96.0); MONO # 0.4 10^3/uL (0.0-0.8); MONO % 4.8 % (0.0-5.0); NEUTROPHILS # 7.2 10^3/uL (1.8-7.7); NEUTROPHILS % 77.8 % (36.0-66.0); PLATELET COUNT, AUTOMATED 259 10^3/uL (150-450); RED BLOOD COUNT 3.86 10^6/uL (4.00-5.40); WHITE BLOOD COUNT 9.3 10^3/uL (4.0-10.0)
[2018-05-14 11:53] VITALS: BP 134/59
[2018-05-14] MEDS ORDERED: IPRATROPIUM 0.5MG/ALBUTEROL 2.5MG INH SOL UD 3ML (DUONEB)(J7620) NEB ONE (12:00)
[2018-05-14 12:03] LABS: INR 0.92; PROTHROMBIN TIME 12.5 SECONDS (12.1-14.4)
[2018-05-14 12:04] LABS: PARTIAL THROMBOPLASTIN TIME 28.3 SECONDS (25.4-37.6)
[2018-05-14 12:13] LABS: HCG, SERUM QUALITATIVE NEGATIVE (NEGATIVE)
[2018-05-14 12:21] LABS: ALT/SGPT 18 U/L (12-78); BILIRUBIN,DIRECT < 0.1 MG/DL (0.0-0.2); BILIRUBIN,TOTAL 0.2 MG/DL (0.2-1.0); BLOOD UREA NITROGEN 10 MG/DL (7-18); CALCIUM LEVEL 8.2 MG/DL (8.5-10.1); CARBON DIOXIDE LEVEL 28 MEQ/L (21-32); CHLORIDE LEVEL 107 MEQ/L (98-107); CPK CREATINE PHOSPHOKINASE 128 U/L (26-192); CREATININE FOR GFR 0.74 MG/DL (0.55-1.30); FREE T4 0.89 NG/DL (0.76-1.46); GLOMERULAR FILTRATION RATE > 60.0 (>60); GLUCOSE, FASTING 110 MG/DL (70-100); LIPASE 35 U/L (73-393); MB/CK RELATIVE INDEX 2.11 (< OR =4); POTASSIUM SERUM 3.8 MEQ/L (3.5-5.1); SODIUM LEVEL 139 MEQ/L (136-145); TOTAL PROTEIN 6.6 GM/DL (6.4-8.2); TROPONIN I < 0.02 NG/ML (< 0.10)
[2018-05-14] MEDS ORDERED: ISOVUE-370 76% 100ML VIAL (Q9967) As Ordered ONE (12:27)
[2018-05-14 12:43] LABS: LITHIUM LEVEL 0.38 MEQ/L (0.60-1.20)
--- NOTE | 2018-05-14 13:55 | REP ---
CT ANGIOGRAM CHEST: 05/14/2018. CLINICAL HISTORY: Pleuritic chest pain. COMPARISON: Chest x-ray 04/26/2018. TECHNIQUE: Patient received bolus 75 mL Isovue 370, scanning through the chest with CT angiogram protocol. Coronal and sagittal thick slab MIP and standard reformats provided. Findings: Lungs are well inflated. There is no pleural effusion, pleural thickening, calcified pleural plaque, pleural-based mass, or other acute parenchymal lung finding. Heart is not enlarged. There is no pericardial thickening or effusion. The aorta is without aneurysm or dissection. The main, right, and left pulmonary arteries in the mediastinum are without filling defects. The lobar, segmental, and subsegmental pulmonary arteries visible are without filling defect or vessel cutoff. I see no cylindrical bronchiectatic change. There is no pneumothorax or pneumomediastinum. Tracheal airway intact. No hiatal hernia. Bone windows show the sternum, manubrium, medial clavicles, scapulae, visible portion of the left humeral head, and the bilateral ribs were grossly intact. The upper abdomen shows no focal lesion in the liver or spleen. Adrenal glands are without a mass. Gallbladder shows no calcified stone. Pancreas unremarkable. Upper poles kidneys intact. Visualized bowel loops in the upper abdomen are normal. IMPRESSION: 1. There is no CT evidence of pulmonary thromboembolism. No filling defect or vessel cutoff identified. 2. No aortic aneurysm or dissection. 3. Lungs are clear. There is no pneumothorax or pneumomediastinum. The visualized bony thorax including ribs, sternum, manubrium, clavicles, scapulae, small portion of humeral heads, and spine are all without acute finding. Electronically Signed by Dilan Alcocer MD 05/14/2018 07:50 P
[2018-05-14] MEDS ORDERED: ACETAMINOPHEN TAB 650MG DOSE (2X325MG) PO ONE (15:00)
[2018-05-14 16:48] LABS: CPK CREATINE PHOSPHOKINASE 115 U/L (26-192); MB/CK RELATIVE INDEX 1.65 (< OR =4); TROPONIN I < 0.02 NG/ML (< 0.10)
[2018-05-14 17:49] VITALS: BP 124/70
--- NOTE | 2018-05-14 19:37 | ECGEPIP ---
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
--- NOTE | 2018-05-15 16:30 | ECGEPIP ---
Stationary ECG Study [facility] - ED Test Date: 2018-05-14 Pat Name: ASHLEY WEBER Department: Room: - Gender: F Passenger Rate Clerk: MARIA T : 1990 Requested By: AD Brown Order Number: [id number] Reading MD: Rachel Rodriguez Measurements Intervals [place] Rate: 85 P: 52 [place]: 170 QRS: 29 QRSD: 91 T: 16 QT: 377 QTc: 449 Interpretive Statements SINUS RHYTHM DECREASED RATE 11:09 Electronically Signed On 05-15-2018 16:30:29 EST by Rachel Rodriguez
== END 2018-05-14 17:59 | disposition home or self-care (01) ==
LOC: M ED 10:46 → EDBD 10:46 → EDSEX 10:46 → M ED 17:59
DX: R07.9 Chest pain, unspecified (principal); R00.0 Tachycardia, unspecified; R94.31 Abnormal electrocardiogram [ECG] [EKG]; J45.909 Unspecified asthma, uncomplicated; F31.9 Bipolar disorder, unspecified; F20.9 Schizophrenia, unspecified; F32.9 Major depressive disorder, single episode, unspecified; F41.9 Anxiety disorder, unspecified; K02.9 Dental caries, unspecified; Z72.0 Tobacco use; Z79.899 Other long term (current) drug therapy; Z91.018 Allergy to other foods
CPT/HCPCS: 71275; 80048; 80076; 80178; 82550; 82553; 83690; 84439; 84443; 84703; 85025; 85610; 85730; 93005; 93041; 94760; 99285; Q9967

== ENCOUNTER 2018-06-14 20:39 | Emergency (ER) | payer OTHER ==
[~2018-06-14] VITALS: Ht 154.9 cm; Wt 122.7 kg
[2018-06-14 20:39] VITALS: BP 135/61
[~2018-06-14 20:39] MED LIST changes: +GABA800T4 PO; +PROP10TA56 PO
[2018-06-14] MEDS ORDERED: IBUP-1022 PO (22:24)
--- NOTE | 2018-06-15 02:30 | REP ---
Clinical: Trauma. Technique: PA and lateral views of the right tibia / fibula. Findings: No acute fracture or dislocation. Skeletal structures, joint spaces, and surrounding soft tissues appear normal. No subcutaneous emphysema or radiodense foreign body. Impression: No acute fracture or dislocation. Electronically Signed by Darren Rodriguez MD 06/15/2018 02:21 A
== END 2018-06-14 22:40 | disposition home or self-care (01) ==
LOC: M ED 20:39
DX: S80.11XA Contusion of right lower leg, initial encounter (principal); W10.8XXA Fall (on) (from) other stairs and steps, initial encounter; Y92.098 Other place in other non-institutional residence as the place of occurrence of the external cause; I10 Essential (primary) hypertension; Z91.018 Allergy to other foods; Z79.899 Other long term (current) drug therapy

== ENCOUNTER 2018-06-16 14:23 | Emergency (ER) | payer OTHER ==
[~2018-06-16] VITALS: Ht 154.9 cm; Wt 127.3 kg
[~2018-06-16 14:23] MED LIST changes: +HYDR-3715 PO; +IBUP-1022 PO; -NORCOTAB PO
[2018-06-16] MEDS ORDERED: ALPRAZolam 0.5 MG TAB PO ONE ×2 (14:45→15:30)
[2018-06-16] MEDS ORDERED: ALPR1TAB3 PO (14:47)
[2018-06-16 15:57] LABS: HEMATOCRIT 35.6 % (36.0-47.0); HEMOGLOBIN 11.1 g/dl (12.0-15.5); MEAN CORPUSCULAR HEMOGLOBIN 29.2 pg (27.0-33.0); MEAN CORPUSCULAR HGB CONC 31.2 g/dl (32.0-36.5); MEAN CORPUSCULAR VOLUME 93.7 fl (80.0-96.0); PLATELET COUNT, AUTOMATED 280 10^3/uL (150-450)
[2018-06-16 16:22] LABS: HCG, SERUM QUALITATIVE NEGATIVE (NEGATIVE)
[2018-06-16 16:33] LABS: ACETAMINOPHEN LEVEL < 2.0 UG/ML (10.0-30.0); ALBUMIN 3.3 GM/DL (3.2-5.2); ALT/SGPT 24 U/L (12-78); AMPHETAMINES LEVEL URINE NEGATIVE (NEGATIVE); BARBITURATES URINE NEGATIVE (NEGATIVE); BENZODIAZEPINES URINE POSITIVE (NEGATIVE); BILIRUBIN,DIRECT < 0.1 MG/DL (0.0-0.2); BILIRUBIN,TOTAL 0.2 MG/DL (0.2-1.0); BLOOD UREA NITROGEN 5 MG/DL (7-18); CALCIUM LEVEL 8.2 MG/DL (8.5-10.1); CANNABINOIDS URINE NEGATIVE (NEGATIVE); CARBON DIOXIDE LEVEL 29 MEQ/L (21-32); CHLORIDE LEVEL 107 MEQ/L (98-107); COCAINE METABOLITE URINE NEGATIVE (NEGATIVE); CREATININE FOR GFR 0.73 MG/DL (0.55-1.30); ETHYL ALCOHOL (ETHANOL) < 0.003 % (0.000-0.010); GLOMERULAR FILTRATION RATE > 60.0 (>60); GLUCOSE, FASTING 95 MG/DL (70-100); METHADONE URINE NEGATIVE (NEGATIVE); OPIATES URINE NEGATIVE (NEGATIVE); PHENCYCLIDINE URINE NEGATIVE (NEGATIVE); POTASSIUM SERUM 4.4 MEQ/L (3.5-5.1); SALICYLATE LEVEL 1.9 MG/DL (5.0-30.0); SODIUM LEVEL 140 MEQ/L (136-145); THYROID STIMULATING HORMONE 0.313 uIU/ML (0.358-3.740); TOTAL PROTEIN 6.2 GM/DL (6.4-8.2)
[2018-06-16 18:50] LABS: LITHIUM LEVEL 0.53 MEQ/L (0.60-1.20)
[2018-06-16 19:55] VITALS: BP 120/56
== END 2018-06-16 19:57 | disposition home or self-care (01) ==
LOC: M ED 14:23
DX: R45.851 Suicidal ideations (principal); F17.200 Nicotine dependence, unspecified, uncomplicated; Z91.018 Allergy to other foods; Z79.899 Other long term (current) drug therapy
CPT/HCPCS: 36415; 80048; 80076; 80178; 80307; 84443; 84703; 85027; 99284; G0480

== ENCOUNTER → 2018-07-04 | Outpatient (CLI) | payer OTHER ==
[~2018-07-04] MED LIST changes: +ALPR1TAB3 PO
--- NOTE | 2018-07-21 01:03 | ECWPNPC ---
PATIENT NAME: ASHLEY WEBER : 1990 GENDER: FEMALE VISIT DATE: 07/04/2018 DISCHARGE DATE: 07/04/18 1058 VISIT LOCKED DATE TIME: PHYSICIAN: BRITTANY BUSTILLOS MD RESOURCE: BRITTANY BUSTILLOS MD REASON FOR APPOINTMENT 1. BACK PAIN HISTORY OF PRESENT ILLNESS PAIN SCREENING: PATIENT HAS A COMPLAINT OF ACUTE OR CHRONIC PAIN :YES 28 YEAR OLD FEMALE PATIENT WITH A HISTORY OF CHRONIC LOW BACK PAIN. THE PATIENT DESCRIBES THE PAIN ACHING, BURNING, SHARP, SHOOTING, AND INTERMITTENT WITH A PAIN SCORE OF 6-10/10 DEPENDING ON PHYSICAL ACTIVITY. THE PATIENT SAYS SHE HAS HAD THIS PAIN FOR YEARS AND DOES NOT RECALL A SPECIFIC INCIDENT THAT CAUSED HER PAIN. THE PATIENT SAYS HER PAIN STARTS IN HER LOW BACK AREA AND RADIATES DOWN HER LEFT LEG. THE PATIENT SAYS THAT SHE HAS TRIED INTERVENTIONS IN THE PAST, BUT HER PAIN HAS PERSISTED. THE PATIENT SAYS THAT SHE HAS DIFFICULTY WALKING DUE TO THIS PAIN. PATIENT DENIES UNEXPLAINABLE WEIGHT LOSS, FEVER, CHILLS, NEW CHANGES ON HER URINARY OR BOWEL CONTROL. FALL RISK SCREENING: SCREENING :NO FALLS REPORTED IN THE LAST YEAR CURRENT MEDICATIONS TAKING VENTOLIN HFA 108 (90 BASE) MCG/ACT AEROSOL SOLUTION 2 PUFFS NEEDED INHALATION EVERY 6 HRS TAKING ATORVASTATIN CALCIUM 20 MG TABLET 1 TABLET ORALLY ONCE A DAY TAKING CHOLECALCIFEROL 5000 UNIT CAPSULE 1 CAPSULE ORALLY ONCE A DAY TAKING IBUPROFEN 600 MG TABLET 1 TABLET WITH FOOD OR MILK NEEDED ORALLY BID TAKING LITHIUM CARBONATE 600 MG CAPSULE 1 CAPSULE AT BEDTIME ORALLY BID TAKING LAMOTRIGINE 200 MG TABLET 1 TABLET ORALLY TWICE A DAY TAKING TRAZODONE HCL 150 MG TABLET 1 TABLET AT BEDTIME ORALLY ONCE A DAY TAKING XANAX 1 MG TABLET 1 TABLET ORALLY THREE TIMES DAILY NEEDED NOT-TAKING GABAPENTIN 800 MG TABLET 1 CAPSULE ORALLY THREE TIMES DAILY NOT-TAKING AMBIEN 5 MG TABLET 1 TABLET AT BEDTIME ORALLY ONCE A DAY NOT-TAKING LMX 4 4 % CREAM 1 APPLICATION TO AFFECTED AREA NEEDED EXTERNALLY ON LOWER BACK THREE TIMES A DAY MEDICATION LIST REVIEWED AND RECONCILED WITH THE PATIENT PAST MEDICAL HISTORY BIPOLAR ASTHMA BRIEF PSYCHOTIC DISORDER SCHIZOPHRENIA DEPRESSION AND ANXIETY INTERMITTENT EXPLOSIVE DISODER -11/2016 IN PATIENT ADMISSION SEPSIS 2 FACIAL CELLULITIS -08/04/2017 CT MAXILLARY C DERMAL THICKENING CONSITENT C CELLULITIS L MANDIBULAR/MAXILLARY SUBCUTANEOUS EDEMA DENTAL CARIES/ ABSCESS ALLERGIES ABILIFY: AGITATION/RESTLESSNESS - SIDE EFFECTS SURGICAL HISTORY TUBAL LIGATION 12/2013 FAMILY HISTORY FATHER: ALIVE 53 YRS, LIPOMAS, ANGER ISSUES MOTHER: ALIVE 55 YRS, COPD, ASTHMA, HT SIBLINGS: ALIVE SON(S): ALIVE DAUGHTER(S): ALIVE PATERNAL GRAND FATHER: ALIVE, STROKE PATERNAL GRAND MOTHER: , OVARIAN CANCER MATERNAL GRAND FATHER: ALIVE, UNKNOWN MATERNAL GRAND MOTHER: ALIVE, UNKNOWN 1 BROTHER(S) , 2 SISTER(S) . 3 SON(S) , 2 DAUGHTER(S) . 1 SON ADHD SEVERE AND APHAKIA\N1 DAUGHTER ASTHMA AND APHAKIA. SOCIAL HISTORY GENERAL: TOBACCO USE ARE YOU A:CURRENT EVERY DAY SMOKER ADDITIONAL FINDINGS: TOBACCO USERLIGHT CIGARETTE SMOKER ((1-9 CIGS/DAY) SMOKING CESSATION INFORMATION GIVEN07/04/2018 LATEX QUESTIONNAIRE LATEX ALLERGY : HAVE YOU EVER DEVELOPED ANY TYPE OF REACTION AFTER HANDLING LATEX PRODUCTS SUCH RUBBER GLOVES, CONDOMS, DIAPHRAGMS, BALLOONS, SOCKS, OR UNDERWEAR?NO LATEX ALLERGY : HAVE YOU EVER DEVELOPED ANY TYPE OF REACTION DURING OR AFTER DENTAL APPOINTMENT, VAGINAL/RECTAL EXAMINATION, SURGICAL PROCEDURE, OR ANY OTHER EXPOSURE?NO LATEX RISK : HAVE YOU EVER HAD ANY DIFFICULTY BREATHING OR HIVES AFTER EATING OR HANDLING ANY FRUITS, OR VEGETABLES; SUCH KIWI, BANANAS, STONE FRUITS, OR CHESTNUTSNO LATEX RISK : DO YOU HAVE A PREVIOUS PERSONAL HISTORY OF MORE THAN NINE SURGERIES, SPINA BIFIDA, OR REPEATED CATHERTIZATIONS? NO LATEX RISK : ARE YOU FREQUENTLY EXPOSED TO LATEX PRODUCTS IN YOUR OCCUPATION?NO DATE ASKED : 07/04/2018 ALCOHOL SCREENING DID YOU HAVE A DRINK CONTAINING ALCOHOL IN THE PAST YEAR?NO POINTS0 INTERPRETATIONNEGATIVE RECREATIONAL DRUG USE DRUG USE?NO CAFFEINE CAFFEINE USE?YES SODA HOW OFTEN AND HOW MUCH? 1-2 SODAS/DAY SEXUAL HX HAD SEX IN THE LAST 12 MONTHS (VAGINAL, ORAL, OR ANAL)?YES WITHMEN ONLY USE PROTECTION?NO HAVE YOU EVER HAD AN STD?YES CHLAMYDIA?YES GC?NO SYPHILIS?NO HERPES?NO OTHER?NO LMP:06/2017 HIV / HEP-C SCREENING HIV TEST OFFERED TO PATIENT:YES DATE OFFERED:07/23/2017 TEST ACCEPTED:YES BROCHURE PROVIDED TO PATIENTYES HEP-C TEST OFFERED TO PATIENT:YES DATE OFFERED:07/23/2017 TEST ACCEPTED:YES SIKH SIKH NO SIKH BELIEFS THAT WOULD IMPACT HEALTH CARE. LANGUAGE LANGUAGES SPOKEN:BOTH TURKISH AND MICRONESIAN EDUCATION LEVEL OF EDUCATION:NOT FINISHED HIGH SCHOOL LEARNING BARRIERS / SPECIAL NEEDS CHANGE FROM LAST VISIT?NO BARRIERS TO LEARNING?NO HEARING IMPAIRED?NO VISION IMPAIRED?YES :CORRECTIVE LENSES COGNITIVELY IMPAIRED?NO READINESS TO LEARN?YES LEARNING PREFERENCES?NO LEARNING CAPABILITIES PRESENT?YES EMOTIONAL BARRIERS?NO SPECIAL DEVICES?NO MATERIALS INSPECTOR NEEDED?NO OCCUPATION: DISABLED. DIET: REGULAR. EXERCISE: NO REGULAR EXERCISE, STRETCHES PRESCRIBED. NEW PATIENT PAIN DIARY PATIENT DESCRIBES PAIN :ACHING, BURNING, SHARP, SHOOTING FROM 0-10, WHAT LEVEL IS YOUR PAIN TODAY?6 PRECIPITATING FACTORS STANDING OR SITTING FOR LONG PERIODS, PT STATES THAT SHE HAS TO TAKE BREAKS FROM LONG WALKS ALLEVIATING FACTORS WALKING BACK AND FORTH OR SIDE TO SIDE, USING HEAT OR ICE IMPACT ON FUNCTION NOT ABLE TO DO DAILY TASKS, PLAYING WITH CHILDREN IS THERE A CHANCE YOU COULD BE ?NO HAVE YOU BEEN SICK IN THE LAST WEEK (COLD, COUGH, FEVER, FLU, ETC)NO DO YOU TAKE ANY BLOOD THINNERS?NO DO YOU HAVE ANY RASHES OR OPEN SORES?NO ANY CHANGE IN BOWEL OR BLADDER CONTROL?NO ARE YOU ALLERGIC TO SHELLFISH OR IV DYE?NO ARE YOU DIABETIC?NO DO YOU HAVE A PACEMAKER OR DEFIBRILLATOR?NO ANY NEW PROBLEMS WITH MEDICINES OR NEW ALLERGIESNO ANY NEW PATTERNS OF PAIN OR NUMBNESS?YES ANY CHANGE IN YOUR MEDICAL CONDITION?NO HAVE YOU FALLEN IN THE LAST 6 MONTHS?YES DO YOU USE ANY TYPE OF TOBACCO (SMOKE, SMOKELESS, CHEW, ETC.)YES ARE YOU ABUSED, NEGLECTED, OR IN AN UNSAFE ENVIRONMENT?NO DO YOU HAVE THOUGHTS OF HURTING YOURSELF OR SOMEONE ELSE?NO DO YOU NEED ANY PRESCRIPTIONS?YES DO YOU HAVE ANY OTHER QUESTIONS OR CONCERNS?NO PAIN CLINIC PFS, CLERGY, PUBLIC HEALTH REFERRALS WAS THE PROVIDER NOTIFIED OF ANY PERTINENT INFO?YES HAS THE PATIENT BEEN EDUCATED REGARDING HIS/HER PLAN OF CARE?YES HAS THE PATIENT BEEN EDUCATED REGARDING PAIN, THE RISK FOR PAIN, THE IMPORTANCE OF EFFECTIVE PAIN MANAGEMENT, AND THE PAIN ASSESSMENT PROCESS?YES ADVANCE DIRECTIVE ADVANCE DIRECTIVE DISCUSSED WITH PATIENT:YES PT DECLINED INFORMATION OR ASSISTANCE WITH COMPLETING PAPERWORK. HOSPITALIZATION/MAJOR DIAGNOSTIC PROCEDURE ALLERGIC REACTION TO PINESOL AN ASTHMA A CHILD PSYCH X5 [phone] CHILDBIRTH X5 2006,2008,2010,2010,2014 CELLULITIS IN RIGHT ARM X3 2016 CELLULITIS IN LEFT SIDE OF FACE 07/2017 [facility] ED-DENTAL ABCESS 12/2017 [facility]-LUMBAR PAIN 03/2018 [facility] ED-ASTHMA 04/26/2018 [facility] ED-CHEST PAIN 05/14/2018 REVIEW OF SYSTEMS REVIEWED BY: PROVIDER: BRITTANY BUSTILLOS MD . CONSTITUTIONAL: ANY CHANGE IN YOUR MEDICAL CONDITION? NO . CHILLS NO . FEVER NO . INFECTION: DO YOU HAVE NEW INFECTIONS? NO . DO YOU HAVE HISTORY OF MRSA? NO . MUSCULOSKELETAL: ANY NEW PATTERNS OF PAIN OR NUMBNESS? YES, MID -LOW BACK, BURNING, NUMBNESS. LOW BACK PAIN SHOOTS DOWN BOTH LEGS . SYTEMIC LUPUS NO . GASTROENTEROLOGY: ANY NEW CHANGE IN BOWEL CONTROL? NO . BARRETTS ESOPHAGUS NO . CIRRHOSIS NO . HEPATITIS NO . LIVER FAILURE NO . ACID REFLUX NO . UNEXPLAINED WEIGHT LOSS NO . GENITOURINARY: ANY NEW CHANGE IN BLADDER CONTROL? NO . IS THERE A CHANCE YOU COULD BE ? NO . HEMATOLOGY/LYMPH: DO YOU TAKE ANY BLOOD THINNERS? (FOR EXAMPLE- COUMADIN, PLAVIX, AGGRENOX, PLATEL, PRADAXA, OR XARELTO) NO . WHEN WAS YOUR LAST DOSE? DATE: TIME: . LOW PLATELET COUNT NO . SICKLE CELL DISEASE NO . VON WILLIEBRANDS NO . FACTOR V LEIDEN NO . THALLASEMIA NO . ANEMIA NO . EASY BRUISING NO . NEUROLOGY: HAVE YOU FALLEN IN THE PAST 12 MONTHS? YES, PT STATES THAT SHE WAS HOME, FELL BACK FROM SLIPPING ON ICE, LANDED ON BACK AND KNEE. PT STATES THAT SHE REPORTED TO ED, NO FRACTURES NOTED . ANY NEW EXTREMITY NUMBNESS OR WEAKNESS? NO . HEAD INJURY NO . DEMENTIA NO . CEREBRAL PALSY NO . MULTIPLE SCLEROSIS NO . DIZZINESS NO . HEADACHE NO . STROKES NO . VERTIGO NO . CARDIOLOGY: DO YOU HAVE A PACEMAKER OR DEFIBRILLATOR? NO . ANGINA NO . HEART ATTACK NO . HEART SURGERY NO . CONGESTIVE HEART FAILURE/FLUID OVERLOAD NO . CHEST PAIN NO . HIGH BLOOD PRESSURE NO . IRREGULAR HEART BEAT NO . RESPIRATORY: HAVE YOU BEEN SICK IN THE PAST WEEK? NO . FEVER NO . FLU LIKE SYMPTOMS? NO . CPAP NO . BYPAP NO . ASTHMA NO . EMPHYSEMA NO . CHRONIC LUNG DISEASES NO . SHORTNESS OF BREATH ON EXERTION NO . COUGH NO . SNORING NO . INTEGUMENTARY: DO YOU HAVE ANY RASHES OR OPEN SORES? NO . ALLERGIC/IMMUNO: ARE YOU ALLERGIC TO IV DYE? NO . ANY NEW ALLERGIES? NO . PSYCHIATRIC: DO YOU HAVE THOUGHTS OF HURTING YOURSELF OR SOMEONE ELSE? NO . ARE YOU ABUSED, NEGLECTED, OR IN AN UNSAFE ENVIRONMENT? NO . ENDOCRINOLOGY: ARE YOU DIABETIC? NO . THYROID DISORDER NO . OTHER: DO YOU NEED ANY PRESCRIPTIONS? NO . IF YES, PLEASE LIST: ____ . ANY NEW PROBLEMS WITH YOUR MEDICATIONS? NO . WHEN DID YOU LAST EAT? ____ . WHEN DID YOU LAST DRINK? ____ . WHAT DID YOU LAST DRINK? ____ . NAME OF PERSON DRIVING YOU HOME? ____ . DO YOU HAVE ANY OTHER QUESTIONS OR CONCERNS PT WENT TO ED FOR CHEST PAIN ABOUT 1 MONTH AGO, DETERMINED IT MAY BE RELATED TO GALL BLADDER ISSUES . VITAL SIGNS WT 277.2 LBS, HT 61 IN, BMI 52.37 INDEX, BP 131/71 MM HG, HR 79 /MIN, RR 18 /MIN, TEMP 97.7 F, OXYGEN SAT % 98%, SAFE IN ENV? (Y/N) Y, NA INITIALS CO 09:14, REVIEWED BY: CEFERINO. EXAMINATION GENERAL EXAMINATION: PATIENT IS ALERT O X 3 AND COOPERATIVE. LUNGS CLEAR, TO AUSCULTATION. HEART: NO MURMURS OR GALLOPS; FACIAL CRANIAL NERVES ARE GROSSLY NORMAL. GOOD SYMMETRY OF FACIAL MUSCLE MOVEMENT. NORMAL VISUAL CORREA. ANTALGIC GAIT. PATIENT IS LIMPING FROM HER LEFT LEG. LEFT LEG IS WEAKER AT EXTENSION AND FLEXION. TENDERNESS IN THE LOW BACK AREA. PRESENCE OF TRIGGER POINTS AND BANDS OF TISSUE WITH RESTRICTION OF MOVEMENT OF THE BACK. ASSESSMENTS MYALGIA, OTHER SITE - M79.18 (PRIMARY) TREATMENT MYALGIA, OTHER SITE CLINICAL NOTES: WE DISCUSSED SEVERAL ISSUES WITH MRS. WEBER'S PAIN MANAGEMENT CASE. DUE TO THE TRIGGER POINTS, BANDS OF TISSUE, AND RESTRICTION OF MOVEMENT, I WOULD LIKE TO MOVE FORWARD WITH A LOW BACK TRIGGER POINT INJECTION AT THIS TIME. WE DISCUSSED THE BENEFITS, RISKS, AND ALTERNATIVES OF THE INJECTION AND THE PATIENT WOULD LIKE TO PROCEED. THE PATIENT WILL FOLLOW UP 3 WEEKS AFTER THE INJECTION. INSTRUCTIONS WERE GIVEN, QUESTIONS WERE ANSWERED, PATIENT REPORTS UNDERSTANDING AND AGREES WITH THE PLAN. I, BISI DEGROOT, DOCUMENTED THE ABOVE INFORMATION ACTING A SCRIBE FOR DR. BUSTILLOS. I HAVE REVIEWED THE ABOVE DOCUMENT, WRITTEN BY BISI CABAIBLala AND I VERIFY THAT IT IS ACCURATE. DEAR DR. TIRADO:THANK YOU FOR YOUR KIND REFERRAL OF MRS. WEBER. IF YOU WANT TO DISCUSS HER CASE WITH ME PLEASE CALL ME AT THE PAIN CENTER AT [phone]. SINCERELY,BRITTANY BUSTILLOS, [facility] . PROCEDURE CODES FA211 ESTABILISHED PATIENT [facility] FACILITY CHARGE G8427 CURRENT MEDS W/DOSAGES DOCUMENTED G8730 PAIN ASSESS POS TOOL F/U PLAN DOC DISPOSITION & COMMUNICATION FOLLOW UP 3 WEEKS ELECTRONICALLY SIGNED BY BRITTANY BUSTILLOS MD, MD ON 07/18/2018 AT 06:23 PM EDT DISCLAIMER : THIS IS A VISIT SUMMARY EXTRACTED FROM THE [employer] CHART. IT IS NOT A COPY OF THE [employer] PROGRESS NOTE. MTDD
== END ==
LOC: M PAIN 08:30
PROVIDERS: ATTEND Anesthesiology
DX: M79.18 Myalgia, other site (principal); J45.909 Unspecified asthma, uncomplicated; F31.9 Bipolar disorder, unspecified; F25.0 Schizoaffective disorder, bipolar type; F17.210 Nicotine dependence, cigarettes, uncomplicated; E66.01 Morbid (severe) obesity due to excess calories; Z68.43 Body mass index [BMI] 50.0-59.9, adult; Z79.899 Other long term (current) drug therapy; Z88.8 Allergy status to other drugs, medicaments and biological substances

== ENCOUNTER → 2018-08-16 | Outpatient (CLI) | payer OTHER ==
[~2018-08-16] MED LIST changes: +BUPIVACAINE HCL 0.25% 10 ML VIAL As Ordered ONE; +BUPIVACAINE HCL 0.25% 30 ML VIAL As Ordered ONE; +TRIAMCINOLONE ACETONIDE SUSP 40 MG/ML VIAL (J3301) As Ordered ONE; +diazePAM 5 MG TAB As Ordered ONE; +oxyCODONE 5MG TAB As Ordered ONE
--- NOTE | 2018-08-26 03:32 | ECWPNPC ---
PATIENT NAME: ASHLEY WEBER : 1990 GENDER: FEMALE VISIT DATE: 08/16/2018 DISCHARGE DATE: 08/16/18 1254 VISIT LOCKED DATE TIME: PHYSICIAN: BRITTANY BUSTILLOS MD RESOURCE: BRITTANY BUSTILLOS MD REASON FOR APPOINTMENT 1. TPI HISTORY OF PRESENT ILLNESS HISTORY OF PRESENT ILLNESS: PAIN THE PATIENT DESCRIBES THE PAIN... FALL RISK SCREENING: SCREENING :NO FALLS REPORTED IN THE LAST YEAR CURRENT MEDICATIONS TAKING VENTOLIN HFA 108 (90 BASE) MCG/ACT AEROSOL SOLUTION 2 PUFFS NEEDED INHALATION EVERY 6 HRS, NOTES: MONTHS AGO TAKING ATORVASTATIN CALCIUM 20 MG TABLET 1 TABLET ORALLY ONCE A DAY, NOTES: 08/15/18 1000 TAKING IBUPROFEN 600 MG TABLET 1 TABLET WITH FOOD OR MILK NEEDED ORALLY BID, NOTES: FEW DAYS AGO TAKING LAMOTRIGINE 200 MG TABLET 1 TABLET ORALLY TWICE A DAY, NOTES: 08/15/18 2100 TAKING XANAX 1 MG TABLET 1 TABLET ORALLY THREE TIMES DAILY NEEDED, NOTES: 08/15/18 0900 TAKING VRAYLAR 1.5 MG CAPSULE 1 CAPSULE ORALLY , NOTES: 08/15/18 0900 NOT-TAKING CHOLECALCIFEROL 5000 UNIT CAPSULE 1 CAPSULE ORALLY ONCE A DAY NOT-TAKING LITHIUM CARBONATE 600 MG CAPSULE 1 CAPSULE AT BEDTIME ORALLY BID NOT-TAKING TRAZODONE HCL 150 MG TABLET 1 TABLET AT BEDTIME ORALLY ONCE A DAY NOT-TAKING GABAPENTIN 800 MG TABLET 1 CAPSULE ORALLY THREE TIMES DAILY NOT-TAKING AMBIEN 5 MG TABLET 1 TABLET AT BEDTIME ORALLY ONCE A DAY NOT-TAKING LMX 4 4 % CREAM 1 APPLICATION TO AFFECTED AREA NEEDED EXTERNALLY ON LOWER BACK THREE TIMES A DAY MEDICATION LIST REVIEWED AND RECONCILED WITH THE PATIENT PAST MEDICAL HISTORY BIPOLAR ASTHMA BRIEF PSYCHOTIC DISORDER SCHIZOPHRENIA DEPRESSION AND ANXIETY INTERMITTENT EXPLOSIVE DISODER -11/2016 IN PATIENT ADMISSION SEPSIS 2 FACIAL CELLULITIS -08/04/2017 CT MAXILLARY C DERMAL THICKENING CONSITENT C CELLULITIS L MANDIBULAR/MAXILLARY SUBCUTANEOUS EDEMA DENTAL CARIES/ ABSCESS BACK PAIN ALLERGIES ABILIFY: AGITATION/RESTLESSNESS - SIDE EFFECTS SURGICAL HISTORY TUBAL LIGATION 12/2013 FAMILY HISTORY FATHER: ALIVE 53 YRS, LIPOMAS, ANGER ISSUES MOTHER: ALIVE 55 YRS, COPD, ASTHMA, HT SIBLINGS: ALIVE SON(S): ALIVE DAUGHTER(S): ALIVE PATERNAL GRAND FATHER: ALIVE, STROKE PATERNAL GRAND MOTHER: , OVARIAN CANCER MATERNAL GRAND FATHER: ALIVE, UNKNOWN MATERNAL GRAND MOTHER: ALIVE, UNKNOWN 1 BROTHER(S) , 2 SISTER(S) . 3 SON(S) , 2 DAUGHTER(S) . 1 SON ADHD SEVERE AND APHAKIA\N1 DAUGHTER ASTHMA AND APHAKIA. SOCIAL HISTORY GENERAL: TOBACCO USE ARE YOU A:CURRENT EVERY DAY SMOKER ADDITIONAL FINDINGS: TOBACCO USERLIGHT CIGARETTE SMOKER ((1-9 CIGS/DAY) SMOKING CESSATION INFORMATION GIVEN07/04/2018 HIV / HEP-C SCREENING HIV TEST OFFERED TO PATIENT:YES DATE OFFERED:07/23/2017 TEST ACCEPTED:YES HEP-C TEST OFFERED TO PATIENT:YES DATE OFFERED:07/23/2017 TEST ACCEPTED:YES BROCHURE PROVIDED TO PATIENTYES EDUCATION LEVEL OF EDUCATION:NOT FINISHED HIGH SCHOOL DIET: REGULAR. LANGUAGE LANGUAGES SPOKEN:BOTH GUAMANIAN AND BERMUDIAN NEW PATIENT PAIN DIARY PATIENT DESCRIBES PAIN :ACHING, BURNING, SHARP, SHOOTING FROM 0-10, WHAT LEVEL IS YOUR PAIN TODAY?6 PRECIPITATING FACTORS STANDING OR SITTING FOR LONG PERIODS, PT STATES THAT SHE HAS TO TAKE BREAKS FROM LONG WALKS ALLEVIATING FACTORS WALKING BACK AND FORTH OR SIDE TO SIDE, USING HEAT OR ICE IMPACT ON FUNCTION NOT ABLE TO DO DAILY TASKS, PLAYING WITH CHILDREN IS THERE A CHANCE YOU COULD BE ?NO HAVE YOU BEEN SICK IN THE LAST WEEK (COLD, COUGH, FEVER, FLU, ETC)NO DO YOU TAKE ANY BLOOD THINNERS?NO DO YOU HAVE ANY RASHES OR OPEN SORES?NO ANY CHANGE IN BOWEL OR BLADDER CONTROL?NO ARE YOU ALLERGIC TO SHELLFISH OR IV DYE?NO ARE YOU DIABETIC?NO DO YOU HAVE A PACEMAKER OR DEFIBRILLATOR?NO ANY NEW PROBLEMS WITH MEDICINES OR NEW ALLERGIESNO ANY NEW PATTERNS OF PAIN OR NUMBNESS?YES ANY CHANGE IN YOUR MEDICAL CONDITION?NO HAVE YOU FALLEN IN THE LAST 6 MONTHS?YES DO YOU USE ANY TYPE OF TOBACCO (SMOKE, SMOKELESS, CHEW, ETC.)YES ARE YOU ABUSED, NEGLECTED, OR IN AN UNSAFE ENVIRONMENT?NO DO YOU HAVE THOUGHTS OF HURTING YOURSELF OR SOMEONE ELSE?NO DO YOU NEED ANY PRESCRIPTIONS?YES DO YOU HAVE ANY OTHER QUESTIONS OR CONCERNS?NO RECREATIONAL DRUG USE DRUG USE?NO EXERCISE: NO REGULAR EXERCISE, STRETCHES PRESCRIBED. LEARNING BARRIERS / SPECIAL NEEDS CHANGE FROM LAST VISIT?NO BARRIERS TO LEARNING?NO HEARING IMPAIRED?NO VISION IMPAIRED?YES COGNITIVELY IMPAIRED?NO :CORRECTIVE LENSES READINESS TO LEARN?YES LEARNING PREFERENCES?NO LEARNING CAPABILITIES PRESENT?YES EMOTIONAL BARRIERS?NO SPECIAL DEVICES?NO TRANSPORTER DRIVER NEEDED?NO PAIN CLINIC PFS, CLERGY, PUBLIC HEALTH REFERRALS WAS THE PROVIDER NOTIFIED OF ANY PERTINENT INFO?YES HAS THE PATIENT BEEN EDUCATED REGARDING HIS/HER PLAN OF CARE?YES HAS THE PATIENT BEEN EDUCATED REGARDING PAIN, THE RISK FOR PAIN, THE IMPORTANCE OF EFFECTIVE PAIN MANAGEMENT, AND THE PAIN ASSESSMENT PROCESS?YES LATEX QUESTIONNAIRE LATEX ALLERGY : HAVE YOU EVER DEVELOPED ANY TYPE OF REACTION AFTER HANDLING LATEX PRODUCTS SUCH RUBBER GLOVES, CONDOMS, DIAPHRAGMS, BALLOONS, SOCKS, OR UNDERWEAR?NO LATEX ALLERGY : HAVE YOU EVER DEVELOPED ANY TYPE OF REACTION DURING OR AFTER DENTAL APPOINTMENT, VAGINAL/RECTAL EXAMINATION, SURGICAL PROCEDURE, OR ANY OTHER EXPOSURE?NO DATE ASKED : 07/04/2018 LATEX RISK : HAVE YOU EVER HAD ANY DIFFICULTY BREATHING OR HIVES AFTER EATING OR HANDLING ANY FRUITS, OR VEGETABLES; SUCH KIWI, BANANAS, STONE FRUITS, OR CHESTNUTSNO LATEX RISK : DO YOU HAVE A PREVIOUS PERSONAL HISTORY OF MORE THAN NINE SURGERIES, SPINA BIFIDA, OR REPEATED CATHERTIZATIONS? NO LATEX RISK : ARE YOU FREQUENTLY EXPOSED TO LATEX PRODUCTS IN YOUR OCCUPATION?NO CAFFEINE CAFFEINE USE?YES SODA HOW OFTEN AND HOW MUCH? 1-2 SODAS/DAY ADVANCE DIRECTIVE ADVANCE DIRECTIVE DISCUSSED WITH PATIENT:YES PT DECLINED HCP INFORMATION OR ASSISTANCE WITH COMPLETING PAPERWORK. MORAVIAN MORAVIAN NO CONGREGATIONAL BELIEFS THAT WOULD IMPACT HEALTH CARE. ALCOHOL SCREENING DID YOU HAVE A DRINK CONTAINING ALCOHOL IN THE PAST YEAR?NO POINTS0 INTERPRETATIONNEGATIVE OCCUPATION: DISABLED. SEXUAL HX HAD SEX IN THE LAST 12 MONTHS (VAGINAL, ORAL, OR ANAL)?YES WITHMEN ONLY USE PROTECTION?NO LMP:06/2017 HAVE YOU EVER HAD AN STD?YES OTHER?NO HERPES?NO SYPHILIS?NO GC?NO CHLAMYDIA?YES REVIEWED WITH PATIENT 08/16/18 1145 JS. HOSPITALIZATION/MAJOR DIAGNOSTIC PROCEDURE ALLERGIC REACTION TO PINESOL AN INFANT ASTHMA A CHILD PSYCH X5 [phone] CHILDBIRTH X5 2006,2008,2010,2011,2014 CELLULITIS IN RIGHT ARM X3 2016 CELLULITIS IN LEFT SIDE OF FACE 07/2017 [facility] ED-DENTAL ABCESS 12/2017 [facility]-LUMBAR PAIN 03/2018 [facility] ED-ASTHMA 04/26/2018 [facility] ED-CHEST PAIN 05/14/2018 REVIEW OF SYSTEMS REVIEWED BY: PROVIDER: . CONSTITUTIONAL: ANY CHANGE IN YOUR MEDICAL CONDITION? NO . CHILLS NO . FEVER NO . INFECTION: DO YOU HAVE NEW INFECTIONS? NO . DO YOU HAVE HISTORY OF MRSA? NO . MUSCULOSKELETAL: ANY NEW PATTERNS OF PAIN OR NUMBNESS? YES, STATES MORE NUMBNESS IN THE MIDDLE OF HER BACK AND DOWN BOTH LEGS . GASTROENTEROLOGY: ANY NEW CHANGE IN BOWEL CONTROL? NO . GENITOURINARY: ANY NEW CHANGE IN BLADDER CONTROL? NO . IS THERE A CHANCE YOU COULD BE ? NO . HEMATOLOGY/LYMPH: DO YOU TAKE ANY BLOOD THINNERS? (FOR EXAMPLE- COUMADIN, PLAVIX, AGGRENOX, PLATEL, PRADAXA, OR XARELTO) NO . WHEN WAS YOUR LAST DOSE? DATE: TIME: . NEUROLOGY: HAVE YOU FALLEN IN THE PAST 12 MONTHS? YES, STATES FALL A FEW WEEKS AGO, TRIPPED OVER A PUMP. STATES SHE DID NOT HIT HER HEAD. STATES SHE WAS JUST SORE AFTER, NO ED VISIT, NO IMAGING . ANY NEW EXTREMITY NUMBNESS OR WEAKNESS? NO . CARDIOLOGY: DO YOU HAVE A PACEMAKER OR DEFIBRILLATOR? NO . RESPIRATORY: HAVE YOU BEEN SICK IN THE PAST WEEK? NO . FEVER NO . FLU LIKE SYMPTOMS? NO . COUGH NO . INTEGUMENTARY: DO YOU HAVE ANY RASHES OR OPEN SORES? NO . ALLERGIC/IMMUNO: ARE YOU ALLERGIC TO IV DYE? NO . ANY NEW ALLERGIES? NO . PSYCHIATRIC: DO YOU HAVE THOUGHTS OF HURTING YOURSELF OR SOMEONE ELSE? NO . ARE YOU ABUSED, NEGLECTED, OR IN AN UNSAFE ENVIRONMENT? NO . ENDOCRINOLOGY: ARE YOU DIABETIC? NO . OTHER: DO YOU NEED ANY PRESCRIPTIONS? NO . IF YES, PLEASE LIST: ____ . ANY NEW PROBLEMS WITH YOUR MEDICATIONS? NO . WHEN DID YOU LAST EAT? ____08/15/18 1900 . WHEN DID YOU LAST DRINK? ____08/16/18 12:00 AM . WHAT DID YOU LAST DRINK? ____SPRITE . NAME OF PERSON DRIVING YOU HOME? ____SAVAGE WEBER . DO YOU HAVE ANY OTHER QUESTIONS OR CONCERNS NO . VITAL SIGNS WT 274.8 LBS, HT 61 IN, BMI 51.92 INDEX, BP 117/63 MM HG, HR 89 /MIN, RR 18 /MIN, TEMP 97.7 F, OXYGEN SAT % 97%, SAFE IN ENV? (Y/N) YES, NA INITIALS AW 1108, REVIEWED BY: CHAVA. ASSESSMENTS MYALGIA, OTHER SITE - M79.18 (PRIMARY) PROCEDURES PN TRIGGER POINT INJECTION WITH STEROIDS PRE PROCEDURE DIAGNOSIS 1. MYALGIA 2. PAIN AT BILATERAL THORACIC AREA AND BILATERAL LOW BACK AREA POST PROCEDURE DIAGNOSIS 1. MYALGIA 2. PAIN AT BILATERAL THORACIC AREA AND BILATERAL LOW BACK AREA PROCEDURE TRIGGER POINT INJECTION AT BILATERAL THORACIC AREA AND BILATERAL LOW BACK AREA SURGEON DR. BRITTANY BUSTILLOS ARC WELDING MACHINE OPERATOR NONE ANESTHESIA LOCAL PRE PROCEDURE NOTE THE PATIENT HAS A HISTORY OF CHRONIC PAIN AT THE RIGHT AND LEFT THORACIC AREA AND RIGHT AND LEFT LOW BACK AREA. I EVALUATE THE PATIENT AND REVIEWED THE CHART. THERE IS EVIDENCE OF BANDS OF TISSUE WITH RESTRICTION OF MOVEMENT AND PRESENCE OF TRIGGER POINT AT THE AFFECTED AREA. I WENT OVER THE RISKS, ALTERNATIVES, AND BENEFITS ASSOCIATED WITH THIS PROCEDURE. THE PATIENT WOULD LIKE TO PROCEED AND GIVE CONSENT TO PERFORMED THE PROCEDURE. THE PATIENT DENIES UNEXPLAINABLE WEIGHT LOSS, FEVER, CHILLS, OR NEW CHANGES IN URINARY OR BOWEL CONTROL DESCRIPTION OF PROCEDURE THE PATIENT WAS BROUGHT TO THE PROCEDURE ROOM AND PLACED IN THE SITTING POSITION. THE AREA WAS CLEANED WITH ALCOHOL. THE PROCEDURE WAS DONE USING ASEPTIC STERILE TECHNIQUE. I CHECKED LATERALITY AND THE LEVEL WHERE THE PROCEDURE WAS GOING TO BE PERFORMED WITH THE PATIENT AND THE SUPPORTING STAFF AT THE MOMENT OF THE TIME OUT IN THE PROCEDURE ROOM. USING A 25-GAUGE NEEDLE, TRIGGER POINTS WERE INJECTED AT THE RIGHT AND LEFT THORACIC AREA AND RIGHT AND LEFT LOW BACK AREA WITH A TOTAL OF 40 ML OF BUPIVACAINE 0.25% AND KENALOG 40 MG. THERE WAS NO EVIDENCE OF BLOOD, PARESTHESIA OR CEREBROSPINAL FLUID DURING THE PROCEDURE. THE PATIENT WAS SENT TO THE RECOVERY ROOM. THE PATIENT WAS MOVING THE EXTREMITIES AND DOING WELL. THERE WAS NO COMPLICATION DURING THE PROCEDURE POST PROCEDURE NOTE THE PATIENT WILL BE SEEN IN A FOLLOW UP IN THE NEXT FEW WEEKS. INSTRUCTIONS WERE GIVEN, QUESTIONS WERE ANSWERED, AND THE PATIENT EXPRESSED UNDERSTANDING AND AGREES WITH THE PLAN. I, BISI DEGROOT, DOCUMENTED THE ABOVE INFORMATION ACTING A SCRIBE FOR DR. BUSTILLOS. I HAVE REVIEWED THE ABOVE DOCUMENT, WRITTEN BY BISI GONZALES AND I VERIFY THAT IT IS ACCURATE. PROCEDURE CODES 21014 INJECT TRIGGER POINTS 3/> DISPOSITION & COMMUNICATION FOLLOW UP 3 WEEKS ELECTRONICALLY SIGNED BY BRITTANY BUSTILLOS MD, MD ON 08/24/2018 AT 04:29 PM EDT DISCLAIMER : THIS IS A VISIT SUMMARY EXTRACTED FROM THE [employer] CHART. IT IS NOT A COPY OF THE [employer] PROGRESS NOTE. [facility]
== END ==
LOC: M PAIN 11:15
PROVIDERS: ATTEND Anesthesiology
DX: M79.18 Myalgia, other site (principal); M54.6 Pain in thoracic spine; M54.5 Low back pain; J45.909 Unspecified asthma, uncomplicated; F17.210 Nicotine dependence, cigarettes, uncomplicated; E66.01 Morbid (severe) obesity due to excess calories; Z68.43 Body mass index [BMI] 50.0-59.9, adult; Z79.899 Other long term (current) drug therapy; Z88.8 Allergy status to other drugs, medicaments and biological substances; Z86.59 Personal history of other mental and behavioral disorders
CPT/HCPCS: 20553; J3301

== ENCOUNTER → 2018-09-19 | Outpatient (CLI) | payer OTHER ==
[~2018-09-19] MED LIST changes: -BUPIVACAINE HCL 0.25% 10 ML VIAL As Ordered ONE; -BUPIVACAINE HCL 0.25% 30 ML VIAL As Ordered ONE; -TRAZ-160 PO; +TRAZ-252 PO; -TRIAMCINOLONE ACETONIDE SUSP 40 MG/ML VIAL (J3301) As Ordered ONE; -diazePAM 5 MG TAB As Ordered ONE; -oxyCODONE 5MG TAB As Ordered ONE
--- NOTE | 2018-09-28 00:37 | ECWPNPC ---
PATIENT NAME: ASHLEY WEBER : 1990 GENDER: FEMALE VISIT DATE: 09/19/2018 DISCHARGE DATE: 09/19/18 1117 VISIT LOCKED DATE TIME: PHYSICIAN: BRITTANY BUSTILLOS MD RESOURCE: BRITTANY BUSTILLOS MD REASON FOR APPOINTMENT 1. POST TPI HISTORY OF PRESENT ILLNESS HISTORY OF PRESENT ILLNESS: PAIN THE PATIENT DESCRIBES THE PAIN... 28 YEAR OLD FEMALE PATIENT WITH A HISTORY OF CHRONIC LOW BACK PAIN. THE PATIENT DESCRIBES THE PAIN ACHING, BURNING, TENDER, SHARP, CONTINUOUS, AND DAILY WITH A PAIN SCORE OF 7-10/10 DEPENDING ON PHYSICAL ACTIVITY. THE PATIENT STATES THE PAIN STARTS IN HER LOW BACK AND RADIATES DOWN HER RIGHT LEG. THE PATIENT SAYS SHE HAS SUFFERED FROM THIS PAIN FOR MANY YEARS. THE PATIENT SAYS THE PAIN IS CAUSING DIFFICULTIES TO WALK AND SLEEP. THE PATIENT HAD A BILATERAL LUMBAR AND BILATERAL THORACIC TRIGGER POINT INJECTION THAT DID NOT HELP WITH HER PAIN. PATIENT DENIES UNEXPLAINABLE WEIGHT LOSS, FEVER, CHILLS, NEW CHANGES ON HER URINARY OR BOWEL CONTROL. FALL RISK SCREENING: SCREENING :NO FALLS REPORTED IN THE LAST YEAR CURRENT MEDICATIONS TAKING VENTOLIN HFA 108 (90 BASE) MCG/ACT AEROSOL SOLUTION 2 PUFFS NEEDED INHALATION EVERY 6 HRS TAKING ATORVASTATIN CALCIUM 20 MG TABLET 1 TABLET ORALLY ONCE A DAY TAKING IBUPROFEN 600 MG TABLET 1 TABLET WITH FOOD OR MILK NEEDED ORALLY BID TAKING LAMOTRIGINE 200 MG TABLET 1 TABLET ORALLY TWICE A DAY TAKING XANAX 1 MG TABLET 1 TABLET ORALLY THREE TIMES DAILY NEEDED TAKING VRAYLAR 1.5 MG CAPSULE 1 CAPSULE ORALLY NOT-TAKING CHOLECALCIFEROL 5000 UNIT CAPSULE 1 CAPSULE ORALLY ONCE A DAY NOT-TAKING LITHIUM CARBONATE 600 MG CAPSULE 1 CAPSULE AT BEDTIME ORALLY BID NOT-TAKING TRAZODONE HCL 150 MG TABLET 1 TABLET AT BEDTIME ORALLY ONCE A DAY NOT-TAKING GABAPENTIN 800 MG TABLET 1 CAPSULE ORALLY THREE TIMES DAILY NOT-TAKING AMBIEN 5 MG TABLET 1 TABLET AT BEDTIME ORALLY ONCE A DAY NOT-TAKING LMX 4 4 % CREAM 1 APPLICATION TO AFFECTED AREA NEEDED EXTERNALLY ON LOWER BACK THREE TIMES A DAY MEDICATION LIST REVIEWED AND RECONCILED WITH THE PATIENT PAST MEDICAL HISTORY BIPOLAR ASTHMA BRIEF PSYCHOTIC DISORDER SCHIZOPHRENIA DEPRESSION AND ANXIETY INTERMITTENT EXPLOSIVE DISODER -11/2016 IN PATIENT ADMISSION SEPSIS 2 FACIAL CELLULITIS -08/04/2017 CT MAXILLARY C DERMAL THICKENING CONSITENT C CELLULITIS L MANDIBULAR/MAXILLARY SUBCUTANEOUS EDEMA DENTAL CARIES/ ABSCESS BACK PAIN ALLERGIES ABILIFY: AGITATION/RESTLESSNESS - SIDE EFFECTS SURGICAL HISTORY TUBAL LIGATION 12/2013 FAMILY HISTORY FATHER: ALIVE 53 YRS, LIPOMAS, ANGER ISSUES MOTHER: ALIVE 55 YRS, COPD, ASTHMA, HT SIBLINGS: ALIVE SON(S): ALIVE DAUGHTER(S): ALIVE PATERNAL GRAND FATHER: ALIVE, STROKE PATERNAL GRAND MOTHER: , OVARIAN CANCER MATERNAL GRAND FATHER: ALIVE, UNKNOWN MATERNAL GRAND MOTHER: ALIVE, UNKNOWN 1 BROTHER(S) , 2 SISTER(S) . 3 SON(S) , 2 DAUGHTER(S) . 1 SON ADHD SEVERE AND APHAKIA\N1 DAUGHTER ASTHMA AND APHAKIA. SOCIAL HISTORY GENERAL: TOBACCO USE ARE YOU A:CURRENT EVERY DAY SMOKER ADDITIONAL FINDINGS: TOBACCO USERLIGHT CIGARETTE SMOKER ((1-9 CIGS/DAY) SMOKING CESSATION INFORMATION GIVEN07/04/2018 HIV / HEP-C SCREENING HIV TEST OFFERED TO PATIENT:YES DATE OFFERED:07/23/2017 TEST ACCEPTED:YES HEP-C TEST OFFERED TO PATIENT:YES DATE OFFERED:07/23/2017 TEST ACCEPTED:YES BROCHURE PROVIDED TO PATIENTYES EDUCATION LEVEL OF EDUCATION:NOT FINISHED HIGH SCHOOL DIET: REGULAR. LANGUAGE LANGUAGES SPOKEN:BOTH GIBRALTARIAN AND PASHTO NEW PATIENT PAIN DIARY PATIENT DESCRIBES PAIN :ACHING, BURNING, SHARP, SHOOTING FROM 0-10, WHAT LEVEL IS YOUR PAIN TODAY?6 PRECIPITATING FACTORS STANDING OR SITTING FOR LONG PERIODS, PT STATES THAT SHE HAS TO TAKE BREAKS FROM LONG WALKS ALLEVIATING FACTORS WALKING BACK AND FORTH OR SIDE TO SIDE, USING HEAT OR ICE IMPACT ON FUNCTION NOT ABLE TO DO DAILY TASKS, PLAYING WITH CHILDREN IS THERE A CHANCE YOU COULD BE ?NO HAVE YOU BEEN SICK IN THE LAST WEEK (COLD, COUGH, FEVER, FLU, ETC)NO DO YOU TAKE ANY BLOOD THINNERS?NO DO YOU HAVE ANY RASHES OR OPEN SORES?NO ANY CHANGE IN BOWEL OR BLADDER CONTROL?NO ARE YOU ALLERGIC TO SHELLFISH OR IV DYE?NO ARE YOU DIABETIC?NO DO YOU HAVE A PACEMAKER OR DEFIBRILLATOR?NO ANY NEW PROBLEMS WITH MEDICINES OR NEW ALLERGIESNO ANY NEW PATTERNS OF PAIN OR NUMBNESS?YES ANY CHANGE IN YOUR MEDICAL CONDITION?NO HAVE YOU FALLEN IN THE LAST 6 MONTHS?YES DO YOU USE ANY TYPE OF TOBACCO (SMOKE, SMOKELESS, CHEW, ETC.)YES ARE YOU ABUSED, NEGLECTED, OR IN AN UNSAFE ENVIRONMENT?NO DO YOU HAVE THOUGHTS OF HURTING YOURSELF OR SOMEONE ELSE?NO DO YOU NEED ANY PRESCRIPTIONS?YES DO YOU HAVE ANY OTHER QUESTIONS OR CONCERNS?NO RECREATIONAL DRUG USE DRUG USE?NO EXERCISE: NO REGULAR EXERCISE, STRETCHES PRESCRIBED. LEARNING BARRIERS / SPECIAL NEEDS CHANGE FROM LAST VISIT?NO BARRIERS TO LEARNING?NO HEARING IMPAIRED?NO VISION IMPAIRED?YES COGNITIVELY IMPAIRED?NO :CORRECTIVE LENSES READINESS TO LEARN?YES LEARNING PREFERENCES?NO LEARNING CAPABILITIES PRESENT?YES EMOTIONAL BARRIERS?NO SPECIAL DEVICES?NO FORESTRY AND WILDLIFE MANAGER NEEDED?NO PAIN CLINIC PFS, CLERGY, PUBLIC HEALTH REFERRALS WAS THE PROVIDER NOTIFIED OF ANY PERTINENT INFO?YES HAS THE PATIENT BEEN EDUCATED REGARDING HIS/HER PLAN OF CARE?YES HAS THE PATIENT BEEN EDUCATED REGARDING PAIN, THE RISK FOR PAIN, THE IMPORTANCE OF EFFECTIVE PAIN MANAGEMENT, AND THE PAIN ASSESSMENT PROCESS?YES LATEX QUESTIONNAIRE LATEX ALLERGY : HAVE YOU EVER DEVELOPED ANY TYPE OF REACTION AFTER HANDLING LATEX PRODUCTS SUCH RUBBER GLOVES, CONDOMS, DIAPHRAGMS, BALLOONS, SOCKS, OR UNDERWEAR?NO LATEX ALLERGY : HAVE YOU EVER DEVELOPED ANY TYPE OF REACTION DURING OR AFTER DENTAL APPOINTMENT, VAGINAL/RECTAL EXAMINATION, SURGICAL PROCEDURE, OR ANY OTHER EXPOSURE?NO DATE ASKED : 07/04/2018 LATEX RISK : HAVE YOU EVER HAD ANY DIFFICULTY BREATHING OR HIVES AFTER EATING OR HANDLING ANY FRUITS, OR VEGETABLES; SUCH KIWI, BANANAS, STONE FRUITS, OR CHESTNUTSNO LATEX RISK : DO YOU HAVE A PREVIOUS PERSONAL HISTORY OF MORE THAN NINE SURGERIES, SPINA BIFIDA, OR REPEATED CATHERTIZATIONS? NO LATEX RISK : ARE YOU FREQUENTLY EXPOSED TO LATEX PRODUCTS IN YOUR OCCUPATION?NO CAFFEINE CAFFEINE USE?YES SODA HOW OFTEN AND HOW MUCH? 1-2 SODAS/DAY ADVANCE DIRECTIVE ADVANCE DIRECTIVE DISCUSSED WITH PATIENT:YES PT DECLINED HCP INFORMATION OR ASSISTANCE WITH COMPLETING PAPERWORK. 09/19/18 BUDDHIST BUDDHIST NO TAOISM BELIEFS THAT WOULD IMPACT HEALTH CARE. ALCOHOL SCREENING DID YOU HAVE A DRINK CONTAINING ALCOHOL IN THE PAST YEAR?NO POINTS0 INTERPRETATIONNEGATIVE OCCUPATION: DISABLED. SEXUAL HX HAD SEX IN THE LAST 12 MONTHS (VAGINAL, ORAL, OR ANAL)?YES WITHMEN ONLY USE PROTECTION?NO LMP:06/2017 HAVE YOU EVER HAD AN STD?YES OTHER?NO HERPES?NO SYPHILIS?NO GC?NO CHLAMYDIA?YES REVIEWED WITH PATIENT 08/16/18 1145 JSREVIEWED WITH PT 09/19/18 1006 BV. HOSPITALIZATION/MAJOR DIAGNOSTIC PROCEDURE ALLERGIC REACTION TO PINESOL AN INFANT ASTHMA A CHILD PSYCH X5 [phone] CHILDBIRTH X5 2008,2008,2010,2011,2014 CELLULITIS IN RIGHT ARM X3 2016 CELLULITIS IN LEFT SIDE OF FACE 07/2017 [facility] ED-DENTAL ABCESS 12/2017 [facility]-LUMBAR PAIN 03/2018 [facility] ED-ASTHMA 04/26/2018 [facility] ED-CHEST PAIN 05/14/2018 REVIEW OF SYSTEMS REVIEWED BY: PROVIDER: BRITTANY BUSTILLOS MD . CONSTITUTIONAL: ANY CHANGE IN YOUR MEDICAL CONDITION? NO . CHILLS NO . FEVER NO . INFECTION: DO YOU HAVE NEW INFECTIONS? NO . DO YOU HAVE HISTORY OF MRSA? NO . MUSCULOSKELETAL: ANY NEW PATTERNS OF PAIN OR NUMBNESS? NO, PT COMPLAINS OF INCREASING LOW BACK PAIN FOR THE PAST COUPLE WEEKS. ALSO COMPLAINS OF INCREASING SHOOTING PAINS DOWN BILATERAL LEGS (LEFT>RIGHT) . GASTROENTEROLOGY: ANY NEW CHANGE IN BOWEL CONTROL? NO . GENITOURINARY: ANY NEW CHANGE IN BLADDER CONTROL? NO . IS THERE A CHANCE YOU COULD BE ? NO . HEMATOLOGY/LYMPH: DO YOU TAKE ANY BLOOD THINNERS? (FOR EXAMPLE- COUMADIN, PLAVIX, AGGRENOX, PLATEL, PRADAXA, OR XARELTO) NO . WHEN WAS YOUR LAST DOSE? DATE: TIME: . NEUROLOGY: HAVE YOU FALLEN IN THE PAST 12 MONTHS? NO . ANY NEW EXTREMITY NUMBNESS OR WEAKNESS? NO . CARDIOLOGY: DO YOU HAVE A PACEMAKER OR DEFIBRILLATOR? NO . RESPIRATORY: HAVE YOU BEEN SICK IN THE PAST WEEK? NO . FEVER NO . FLU LIKE SYMPTOMS? NO . COUGH NO . INTEGUMENTARY: DO YOU HAVE ANY RASHES OR OPEN SORES? NO . ALLERGIC/IMMUNO: ARE YOU ALLERGIC TO IV DYE? NO . ANY NEW ALLERGIES? NO . PSYCHIATRIC: DO YOU HAVE THOUGHTS OF HURTING YOURSELF OR SOMEONE ELSE? NO . ARE YOU ABUSED, NEGLECTED, OR IN AN UNSAFE ENVIRONMENT? NO . ENDOCRINOLOGY: ARE YOU DIABETIC? NO . OTHER: DO YOU NEED ANY PRESCRIPTIONS? NO . IF YES, PLEASE LIST: ____ . ANY NEW PROBLEMS WITH YOUR MEDICATIONS? NO . WHEN DID YOU LAST EAT? ____ . WHEN DID YOU LAST DRINK? ____ . WHAT DID YOU LAST DRINK? ____ . NAME OF PERSON DRIVING YOU HOME? ____ . DO YOU HAVE ANY OTHER QUESTIONS OR CONCERNS NO . VITAL SIGNS WT 276.2 LBS, HT 61 IN, BMI 52.18 INDEX, BP 113/63 MM HG, HR 81 /MIN, RR 18 /MIN, TEMP 97.5 F, OXYGEN SAT % 99%, NA INITIALS SC 10:00, REVIEWED BY: BV. EXAMINATION GENERAL EXAMINATION: PATIENT IS ALERT O X 3 AND COOPERATIVE. TENDERNESS IN THE LOW BACK. LEFT LEG IS WEAKER AT EXTENSION AND FLEXION. STRAIGHT LEG RAISE OF THE LEFT LEG IS POSITIVE AT 45 DEGREES FOR RADICULOPATHY. MRI OF THE LUMBAR SPINE DONE ON 02/12/2018 SHOWS BULGING DISCS AT L4-L5 AND L5-S1 LEVELS. ASSESSMENTS INTERVERTEBRAL DISC DISORDER WITH RADICULOPATHY OF LUMBAR REGION - M51.16 (PRIMARY) INTERVERTEBRAL DISC DISORDER WITH RADICULOPATHY OF LUMBOSACRAL REGION - M51.17 TREATMENT INTERVERTEBRAL DISC DISORDER WITH RADICULOPATHY OF LUMBAR REGION CLINICAL NOTES: WE DISCUSSED SEVERAL ISSUES WITH MS. WEBER'S PAIN MANAGEMENT CASE. DUE TO THE LUMBAR RADICULOPATHY, I WOULD LIKE TO MOVE FORWARD WITH A LUMBAR EPIDURAL STEROID INJECTION AT THIS TIME. WE DISCUSSED THE BENEFITS, RISKS, AND ALTERNATIVES OF THE INJECTION AND THE PATIENT WOULD LIKE TO PROCEED. I WILL START THE PATIENT ON CELEBREX 1 TABLET DAILY TO AID WITH PAIN AND TIZANIDINE 4 MG 1-2 TABLETS NIGHTLY TO HELP WITH PAIN AND SPASTICITY. THE PATIENT MENTIONED WHILE SHE WAS LIVING IN [place], SHE WAS PRESCRIBED VARIOUS MEDICATIONS INCLUDING NARCOTICS. I WILL REQUEST A NARCOTIC DOCTOR TO DOCTOR AGREEMENT FROM THE PATIENT'S PRIMARY CARE PHYSICIAN TO CONTINUE PRESCRIBING THE MEDICATIONS. THE PATIENT IS TO DISCUSS WITH HER PSYCHIATRIST ABOUT SWITCHING VRAYLAR 1.5 MG TO CYMBALTA TO HELP WITH HER MUSCULOSKELETAL PAIN WELL. I WAS WITH THE PATIENT FOR MORE THAN 30 MINUTES AND MORE THAN HALF OF THE TIME WAS SPENT DISCUSSING PROCEDURE OPTIONS, MEDICATION MANAGEMENT, AND ADDRESSING ANY QUESTIONS. THE PATIENT WILL FOLLOW UP IN SEVERAL WEEKS AFTER THE INJECTION. INSTRUCTIONS WERE GIVEN, QUESTIONS WERE ANSWERED, PATIENT REPORTS UNDERSTANDING AND AGREES WITH THE PLAN. I, MATTHEW RECINOS, DOCUMENTED THE ABOVE INFORMATION ACTING A SCRIBE FOR DR. BUSTILLOS. I HAVE REVIEWED THE ABOVE DOCUMENT, WRITTEN BY MATTHEW GONZALES AND I VERIFY THAT IT IS ACCURATE. . OTHERS START TIZANIDINE HCL TABLET, 4 MG, 1 TABLET NEEDED, ORALLY FOR SPASMS AND PAIN, BEFORE BEDTIME MAY REPEAT IN 5 HRS, 30 DAYS, 50, REFILLS 1 START CELECOXIB CAPSULE, 200 MG, 1 CAPSULE WITH FOOD, ORALLY WITH FOOD, ONCE A DAY FOR PAIN, 30 DAY(S), 30, REFILLS 1 PREVENTIVE MEDICINE PAIN CLINIC TEACHING: MEDICATIONS TIZANIDINE AND CELEBREX HANDOUTS PRINTED REVIEWED AND GIVEN TO PT. EM. PROCEDURE CODES FA211 ESTABILISHED PATIENT [facility] FACILITY CHARGE [id number] CURRENT MEDS W/DOSAGES DOCUMENTED G8730 PAIN ASSESS POS TOOL F/U PLAN DOC DISPOSITION & COMMUNICATION FOLLOW UP 3 WEEKS (REASON: LESI) ELECTRONICALLY SIGNED BY BRITTANY BUSTILLOS MD, MD ON 09/27/2018 AT 03:37 PM EDT DISCLAIMER : THIS IS A VISIT SUMMARY EXTRACTED FROM THE [employer] CHART. IT IS NOT A COPY OF THE [employer] PROGRESS NOTE. DARRYLD
== END ==
LOC: M PAIN 10:00
PROVIDERS: ATTEND Anesthesiology
DX: M51.16 Intervertebral disc disorders with radiculopathy, lumbar region (principal); M51.17 Intervertebral disc disorders with radiculopathy, lumbosacral region; F31.9 Bipolar disorder, unspecified; J45.909 Unspecified asthma, uncomplicated; F20.9 Schizophrenia, unspecified; F41.9 Anxiety disorder, unspecified; F17.210 Nicotine dependence, cigarettes, uncomplicated; K02.9 Dental caries, unspecified; Z79.899 Other long term (current) drug therapy; Z88.8 Allergy status to other drugs, medicaments and biological substances

== ENCOUNTER → 2018-10-12 | Outpatient (CLI) | payer OTHER ==
[~2018-10-12] MED LIST changes: +IBUP1TAB6 PO; +ISOVUE-M 200 41% 20ML VIAL (Q9966) As Ordered ONE; +LIDOCAINE 1% SDV INJ 30 ML VIAL As Ordered ONE; +MELO15TA28 PO; +VRAY3CAP PO; +XANA1TAB2 PO; +ZANA4TAB PO; +diazePAM 5 MG TAB As Ordered ONE; +methylPREDNISolone SUSP 40 MG/ML (DEPO-medrol) VIAL (J1030) As Ordered ONE; +oxyCODONE 5MG TAB As Ordered ONE
--- NOTE | 2018-10-12 17:04 | REP ---
Partial lumbar spine series: Two views . History: Injection procedure for pain. 16 seconds of fluoroscopy time is reported. Findings: A sequence of two fluoroscopically obtained last image hold procedural spot radiographs of the lumbar spine document needle position and contrast injection associated with injection procedure. Electronically Signed by Haris Rowe MD 10/12/2018 04:56 P
--- NOTE | 2018-10-14 23:41 | ECWPNPC ---
PATIENT NAME: ASHLEY WEBER : 1990 GENDER: FEMALE VISIT DATE: 10/12/2018 DISCHARGE DATE: 10/12/18 1632 VISIT LOCKED DATE TIME: PHYSICIAN: BRITTANY BUSTILLOS MD RESOURCE: BRITTANY BUSTILLOS MD REASON FOR APPOINTMENT 1. LESI HISTORY OF PRESENT ILLNESS HISTORY OF PRESENT ILLNESS: PAIN THE PATIENT DESCRIBES THE PAIN... FALL RISK SCREENING: SCREENING :NO FALLS REPORTED IN THE LAST YEAR CURRENT MEDICATIONS TAKING TIZANIDINE HCL 4 MG TABLET 1 TABLET NEEDED ORALLY FOR SPASMS AND PAIN BEFORE BEDTIME MAY REPEAT IN 5 HRS, NOTES: 10/11/18@2130 TAKING MOBIC 15 MG TABLET 1 TABLET ORALLY FOR PAIN ONCE A DAY, NOTES: 2 DAYS AGO TAKING LAMOTRIGINE 200 MG TABLET 1 TABLET ORALLY TWICE A DAY, NOTES: 10/11/18@1330 TAKING XANAX 1 MG TABLET 1 TABLET ORALLY THREE TIMES DAILY NEEDED, NOTES: 10/11/18@1330 TAKING PROPRANOLOL HCL 20 MG TABLET 1 TABLET ON AN EMPTY STOMACH ORALLY ONCE A DAY, NOTES: 10/11/18@1330 NOT-TAKING VENTOLIN HFA 108 (90 BASE) MCG/ACT AEROSOL SOLUTION 2 PUFFS NEEDED INHALATION EVERY 6 HRS, NOTES: NONE RECENTLY NOT-TAKING IBUPROFEN 600 MG TABLET 1 TABLET WITH FOOD OR MILK NEEDED ORALLY BID, NOTES: NONE RECENTLY DISCONTINUED ATORVASTATIN CALCIUM 20 MG TABLET 1 TABLET ORALLY ONCE A DAY DISCONTINUED VRAYLAR 1.5 MG CAPSULE 1 CAPSULE ORALLY , NOTES: 10/11/18@1330 DISCONTINUED CHOLECALCIFEROL 5000 UNIT CAPSULE 1 CAPSULE ORALLY ONCE A DAY DISCONTINUED LITHIUM CARBONATE 600 MG CAPSULE 1 CAPSULE AT BEDTIME ORALLY BID DISCONTINUED TRAZODONE HCL 150 MG TABLET 1 TABLET AT BEDTIME ORALLY ONCE A DAY DISCONTINUED GABAPENTIN 800 MG TABLET 1 CAPSULE ORALLY THREE TIMES DAILY DISCONTINUED AMBIEN 5 MG TABLET 1 TABLET AT BEDTIME ORALLY ONCE A DAY DISCONTINUED LMX 4 4 % CREAM 1 APPLICATION TO AFFECTED AREA NEEDED EXTERNALLY ON LOWER BACK THREE TIMES A DAY MEDICATION LIST REVIEWED AND RECONCILED WITH THE PATIENT PAST MEDICAL HISTORY BIPOLAR ASTHMA BRIEF PSYCHOTIC DISORDER SCHIZOPHRENIA DEPRESSION AND ANXIETY INTERMITTENT EXPLOSIVE DISODER -11/2016 IN PATIENT ADMISSION SEPSIS 2 FACIAL CELLULITIS -08/04/2017 CT MAXILLARY C DERMAL THICKENING CONSITENT C CELLULITIS L MANDIBULAR/MAXILLARY SUBCUTANEOUS EDEMA DENTAL CARIES/ ABSCESS BACK PAIN ALLERGIES ABILIFY: AGITATION/RESTLESSNESS - SIDE EFFECTS SURGICAL HISTORY TUBAL LIGATION 12/2013 FAMILY HISTORY FATHER: ALIVE 53 YRS, LIPOMAS, ANGER ISSUES MOTHER: ALIVE 55 YRS, COPD, ASTHMA, HT SIBLINGS: ALIVE SON(S): ALIVE DAUGHTER(S): ALIVE PATERNAL GRAND FATHER: ALIVE, STROKE PATERNAL GRAND MOTHER: , OVARIAN CANCER MATERNAL GRAND FATHER: ALIVE, UNKNOWN MATERNAL GRAND MOTHER: ALIVE, UNKNOWN 1 BROTHER(S) , 2 SISTER(S) . 3 SON(S) , 2 DAUGHTER(S) . 1 SON ADHD SEVERE AND APHAKIA\N1 DAUGHTER ASTHMA AND APHAKIA. SOCIAL HISTORY GENERAL: TOBACCO USE ARE YOU A:CURRENT EVERY DAY SMOKER ADDITIONAL FINDINGS: TOBACCO USERLIGHT CIGARETTE SMOKER ((1-9 CIGS/DAY) SMOKING CESSATION INFORMATION GIVEN10/12/2018 HIV / HEP-C SCREENING HIV TEST OFFERED TO PATIENT:YES DATE OFFERED:07/23/2017 TEST ACCEPTED:YES HEP-C TEST OFFERED TO PATIENT:YES DATE OFFERED:07/23/2017 TEST ACCEPTED:YES BROCHURE PROVIDED TO PATIENTYES OTHERS AT HOME: SPOUSE, CHILDREN. EDUCATION LEVEL OF EDUCATION:NOT FINISHED HIGH SCHOOL DIET: REGULAR. LANGUAGE LANGUAGES SPOKEN:BOTH PALAUAN AND NEPALI NEW PATIENT PAIN DIARY PATIENT DESCRIBES PAIN :ACHING, BURNING, SHARP, SHOOTING FROM 0-10, WHAT LEVEL IS YOUR PAIN TODAY?6 PRECIPITATING FACTORS STANDING OR SITTING FOR LONG PERIODS, PT STATES THAT SHE HAS TO TAKE BREAKS FROM LONG WALKS ALLEVIATING FACTORS WALKING BACK AND FORTH OR SIDE TO SIDE, USING HEAT OR ICE IMPACT ON FUNCTION NOT ABLE TO DO DAILY TASKS, PLAYING WITH CHILDREN IS THERE A CHANCE YOU COULD BE ?NO HAVE YOU BEEN SICK IN THE LAST WEEK (COLD, COUGH, FEVER, FLU, ETC)NO DO YOU TAKE ANY BLOOD THINNERS?NO DO YOU HAVE ANY RASHES OR OPEN SORES?NO ANY CHANGE IN BOWEL OR BLADDER CONTROL?NO ARE YOU ALLERGIC TO SHELLFISH OR IV DYE?NO ARE YOU DIABETIC?NO DO YOU HAVE A PACEMAKER OR DEFIBRILLATOR?NO ANY NEW PROBLEMS WITH MEDICINES OR NEW ALLERGIESNO ANY NEW PATTERNS OF PAIN OR NUMBNESS?YES ANY CHANGE IN YOUR MEDICAL CONDITION?NO HAVE YOU FALLEN IN THE LAST 6 MONTHS?YES DO YOU USE ANY TYPE OF TOBACCO (SMOKE, SMOKELESS, CHEW, ETC.)YES ARE YOU ABUSED, NEGLECTED, OR IN AN UNSAFE ENVIRONMENT?NO DO YOU HAVE THOUGHTS OF HURTING YOURSELF OR SOMEONE ELSE?NO DO YOU NEED ANY PRESCRIPTIONS?YES DO YOU HAVE ANY OTHER QUESTIONS OR CONCERNS?NO RECREATIONAL DRUG USE DRUG USE?NO EXERCISE: NO REGULAR EXERCISE, STRETCHES PRESCRIBED. LEARNING BARRIERS / SPECIAL NEEDS CHANGE FROM LAST VISIT?NO BARRIERS TO LEARNING?NO HEARING IMPAIRED?NO VISION IMPAIRED?YES COGNITIVELY IMPAIRED?NO :CORRECTIVE LENSES READINESS TO LEARN?YES LEARNING PREFERENCES?NO LEARNING CAPABILITIES PRESENT?YES EMOTIONAL BARRIERS?NO SPECIAL DEVICES?NO PARTS CONSULTANT NEEDED?NO PAIN CLINIC PFS, CLERGY, PUBLIC HEALTH REFERRALS WAS THE PROVIDER NOTIFIED OF ANY PERTINENT INFO?YES HAS THE PATIENT BEEN EDUCATED REGARDING HIS/HER PLAN OF CARE?YES HAS THE PATIENT BEEN EDUCATED REGARDING PAIN, THE RISK FOR PAIN, THE IMPORTANCE OF EFFECTIVE PAIN MANAGEMENT, AND THE PAIN ASSESSMENT PROCESS?YES LATEX QUESTIONNAIRE LATEX ALLERGY : HAVE YOU EVER DEVELOPED ANY TYPE OF REACTION AFTER HANDLING LATEX PRODUCTS SUCH RUBBER GLOVES, CONDOMS, DIAPHRAGMS, BALLOONS, SOCKS, OR UNDERWEAR?NO LATEX ALLERGY : HAVE YOU EVER DEVELOPED ANY TYPE OF REACTION DURING OR AFTER DENTAL APPOINTMENT, VAGINAL/RECTAL EXAMINATION, SURGICAL PROCEDURE, OR ANY OTHER EXPOSURE?NO DATE ASKED : 07/04/2018 LATEX RISK : HAVE YOU EVER HAD ANY DIFFICULTY BREATHING OR HIVES AFTER EATING OR HANDLING ANY FRUITS, OR VEGETABLES; SUCH KIWI, BANANAS, STONE FRUITS, OR CHESTNUTSNO LATEX RISK : DO YOU HAVE A PREVIOUS PERSONAL HISTORY OF MORE THAN NINE SURGERIES, SPINA BIFIDA, OR REPEATED CATHERIZATIONS? NO LATEX RISK : ARE YOU FREQUENTLY EXPOSED TO LATEX PRODUCTS IN YOUR OCCUPATION?NO CAFFEINE CAFFEINE USE?YES SODA HOW OFTEN AND HOW MUCH? 1-2 SODAS/DAY ADVANCE DIRECTIVE ADVANCE DIRECTIVE DISCUSSED WITH PATIENT:YES PT DECLINED HCP INFORMATION OR ASSISTANCE WITH COMPLETING PAPERWORK. 09/19/18, 10/12/18 EPISCOPALIAN EPISCOPALIAN NO JEWISH BELIEFS THAT WOULD IMPACT HEALTH CARE. MARITAL STATUS: . ALCOHOL SCREENING DID YOU HAVE A DRINK CONTAINING ALCOHOL IN THE PAST YEAR?NO POINTS0 INTERPRETATIONNEGATIVE OCCUPATION: DISABLED. SEXUAL HX HAD SEX IN THE LAST 12 MONTHS (VAGINAL, ORAL, OR ANAL)?YES WITHMEN ONLY USE PROTECTION?NO LMP:06/2017 HAVE YOU EVER HAD AN STD?YES OTHER?NO HERPES?NO SYPHILIS?NO GC?NO CHLAMYDIA?YES REVIEWED WITH PATIENT 08/16/18 1145 JSREVIEWED WITH PT 09/19/18 1006 BV. HOSPITALIZATION/MAJOR DIAGNOSTIC PROCEDURE ALLERGIC REACTION TO PINESOL AN INFANT ASTHMA A CHILD PSYCH X5 [id number] CHILDBIRTH X5 2006,2008,2010,2011,2014 CELLULITIS IN RIGHT ARM X3 2016 CELLULITIS IN LEFT SIDE OF FACE 07/2017 [facility] ED-DENTAL ABCESS 12/2017 [facility]-LUMBAR PAIN 03/2018 [facility] ED-ASTHMA 04/26/2018 [facility] ED-CHEST PAIN 05/14/2018 REVIEW OF SYSTEMS REVIEWED BY: PROVIDER: . CONSTITUTIONAL: ANY CHANGE IN YOUR MEDICAL CONDITION? NO . CHILLS NO . FEVER NO . INFECTION: DO YOU HAVE NEW INFECTIONS? NO . DO YOU HAVE HISTORY OF MRSA? NO . MUSCULOSKELETAL: ANY NEW PATTERNS OF PAIN OR NUMBNESS? YES . GASTROENTEROLOGY: ANY NEW CHANGE IN BOWEL CONTROL? NO . GENITOURINARY: ANY NEW CHANGE IN BLADDER CONTROL? NO . IS THERE A CHANCE YOU COULD BE ? NO . HEMATOLOGY/LYMPH: DO YOU TAKE ANY BLOOD THINNERS? (FOR EXAMPLE- COUMADIN, PLAVIX, AGGRENOX, PLATEL, PRADAXA, OR XARELTO) NO . WHEN WAS YOUR LAST DOSE? DATE: TIME: . NEUROLOGY: HAVE YOU FALLEN IN THE PAST 12 MONTHS? YES . ANY NEW EXTREMITY NUMBNESS OR WEAKNESS? NO . CARDIOLOGY: DO YOU HAVE A PACEMAKER OR DEFIBRILLATOR? NO . RESPIRATORY: HAVE YOU BEEN SICK IN THE PAST WEEK? NO . FEVER NO . FLU LIKE SYMPTOMS? NO . COUGH NO . INTEGUMENTARY: DO YOU HAVE ANY RASHES OR OPEN SORES? NO . ALLERGIC/IMMUNO: ARE YOU ALLERGIC TO IV DYE? NO . ANY NEW ALLERGIES? NO . PSYCHIATRIC: DO YOU HAVE THOUGHTS OF HURTING YOURSELF OR SOMEONE ELSE? NO . ARE YOU ABUSED, NEGLECTED, OR IN AN UNSAFE ENVIRONMENT? NO . ENDOCRINOLOGY: ARE YOU DIABETIC? NO . OTHER: DO YOU NEED ANY PRESCRIPTIONS? NO . IF YES, PLEASE LIST: ____ . ANY NEW PROBLEMS WITH YOUR MEDICATIONS? NO . WHEN DID YOU LAST EAT? ____10/11/18 . WHEN DID YOU LAST DRINK? ____1100 . WHAT DID YOU LAST DRINK? ____WATER . NAME OF PERSON DRIVING YOU HOME? ____VIET WEBER . DO YOU HAVE ANY OTHER QUESTIONS OR CONCERNS NO . VITAL SIGNS WT 275.6 LBS, HT 61 IN, BMI 52.07 INDEX, BP 109/61 MM HG, HR 79 /MIN, RR 18 /MIN, TEMP 97.8 F, OXYGEN SAT % 98%, SAFE IN ENV? (Y/N) YES, NA INITIALS AW 1344, REVIEWED BY: VD. ASSESSMENTS INTERVERTEBRAL DISC DISORDER WITH RADICULOPATHY OF LUMBAR REGION - M51.16 (PRIMARY) INTERVERTEBRAL DISC DISORDER WITH RADICULOPATHY OF LUMBOSACRAL REGION - M51.17 TREATMENT INTERVERTEBRAL DISC DISORDER WITH RADICULOPATHY OF LUMBAR REGION [facility] FLUORO GUIDE SPINE INJECTION (PAIN)[id number] PROCEDURES PRE PROCEDURE DIAGNOSIS LUMBAR DISC DISORDER WITH RADICULOPATHY, LUMBOSACRAL DISC DISORDER WITH RADICULOPATHY POST PROCEDURE DIAGNOSIS LUMBAR DISC DISORDER WITH RADICULOPATHY , LUMBOSACRAL DISC DISORDER WITH RADICULOPATHY PROCEDURE LUMBAR EPIDURAL STEROID INJECTION UNDER FLUOROSCOPIC GUIDANCE SURGEON DR. BRITTANY BUSTILLOS SENIOR HADOOP DEVELOPER NONE ANESTHESIA LOCAL PRE PROCEDURE NOTE THE PATIENT HAS A HISTORY OF CHRONIC LOW BACK PAIN. I EVALUATED THE PATIENT AND REVIEWED THE CHART. I WENT OVER THE RISKS, ALTERNATIVES, AND BENEFITS ASSOCIATED WITH THIS PROCEDURE. THE PATIENT WOULD LIKE TO PROCEED AND GIVE CONSENT TO PERFORMED THE PROCEDURE. THE PATIENT DENIES UNEXPLAINABLE WEIGHT LOSS, FEVER, CHILLS, OR NEW CHANGES IN URINARY OR BOWEL CONTROL. DESCRIPTION OF PROCEDURE THE PATIENT WAS BROUGHT TO THE PROCEDURE ROOM AND PLACED IN THE PRONE POSITION. THE LUMBOSACRAL AREA WAS CLEANED WITH BETADINE SOLUTION AND DRAPED ASEPTICALLY. THE PROCEDURE WAS DONE UNDER STERILE CONDITIONS. I CHECKED LATERALITY AND THE LEVEL WHERE THE PROCEDURE WAS GOING TO BE PERFORMED WITH THE PATIENT AND THE SUPPORTING STAFF AT THE MOMENT OF THE TIME OUT IN THE PROCEDURE ROOM. UNDER FLUOROSCOPIC GUIDANCE, THE TARGET POINT WAS SELECTED AT THE INTERLAMINAR LEVEL OF L5-S1. LIDOCAINE WAS USED TO NUMB THE SKIN AND THE SUBCUTANEOUS TISSUE BELOW IT. EPIDURAL TUOHY NEEDLE, 17-GAUGE, WAS ADVANCED UNDER FLUOROSCOPIC GUIDANCE AND FOLLOWING PATIENT FEEDBACK UNTIL THE EPIDURAL SPACE WAS REACHED, 7 CM DEEP INTO THE SKIN BY THE LOSS OF RESISTANCE TECHNIQUE. ISOVUE M DYE WAS INJECTED SHOWING ADEQUATE SPREAD OF THE DYE. THEN, A SOLUTION OF 3 ML OF NORMAL SALINE WITH DEPO-MEDROL 60 MG WAS INJECTED SLOWLY FOLLOWING PATIENT FEEDBACK. THERE WAS NO EVIDENCE OF BLOOD, PARESTHESIA OR CEREBROSPINAL FLUID DURING THE PROCEDURE. THE PATIENT WAS SENT TO THE RECOVERY ROOM. THE PATIENT WAS MOVING THE EXTREMITIES AND DOING WELL. THERE WAS NO COMPLICATION DURING THE PROCEDURE. FLUOROSCOPY TIME WAS 16 SECONDS. POST PROCEDURE NOTE THE PATIENT WILL BE SEEN IN A FOLLOW UP IN THE NEXT FEW WEEKS. INSTRUCTIONS WERE GIVEN, QUESTIONS WERE ANSWERED, AND THE PATIENT EXPRESSED UNDERSTANDING AND AGREES WITH THE PLAN. I, MATTHEW RECINOS, DOCUMENTED THE ABOVE INFORMATION ACTING A SCRIBE FOR DR. BUSTILLOS. I HAVE REVIEWED THE ABOVE DOCUMENT, WRITTEN BY MATTHEW RECINOS SCRIBLala AND I VERIFY THAT IT IS ACCURATE. PROCEDURE CODES 18298 LUMBAR/SACRAL W/ IMAGING 6045F RADXPS IN END [id number] PXD DISPOSITION & COMMUNICATION FOLLOW UP 2 WEEKS ELECTRONICALLY SIGNED BY BRITTANY BUSTILLOS MD, MD ON 10/14/2018 AT 11:33 AM EDT DISCLAIMER : THIS IS A VISIT SUMMARY EXTRACTED FROM THE [employer] CHART. IT IS NOT A COPY OF THE [employer] PROGRESS NOTE. LAVINIA
== END ==
LOC: M PAIN 13:45
PROVIDERS: ATTEND Anesthesiology
DX: M51.16 Intervertebral disc disorders with radiculopathy, lumbar region (principal); M51.17 Intervertebral disc disorders with radiculopathy, lumbosacral region; F31.9 Bipolar disorder, unspecified; J45.909 Unspecified asthma, uncomplicated; F20.9 Schizophrenia, unspecified; F41.9 Anxiety disorder, unspecified; K02.9 Dental caries, unspecified; F17.210 Nicotine dependence, cigarettes, uncomplicated; Z79.899 Other long term (current) drug therapy; Z88.8 Allergy status to other drugs, medicaments and biological substances
CPT/HCPCS: 62323; J1030; Q9966

== ENCOUNTER 2018-10-28 19:38 | Inpatient (IN) | payer OTHER, SELFPAY ==
[~2018-10-28] VITALS: Ht 154.9 cm; Wt 124.6 kg
[~2018-10-28 19:38] MED LIST changes: -IBUP1TAB6 PO; -ISOVUE-M 200 41% 20ML VIAL (Q9966) As Ordered ONE; -LIDOCAINE 1% SDV INJ 30 ML VIAL As Ordered ONE; -MELO15TA28 PO; -VRAY3CAP PO; -XANA1TAB2 PO; -ZANA4TAB PO; -diazePAM 5 MG TAB As Ordered ONE; -methylPREDNISolone SUSP 40 MG/ML (DEPO-medrol) VIAL (J1030) As Ordered ONE; -oxyCODONE 5MG TAB As Ordered ONE
[2018-10-28] MEDS ORDERED: XANA1TAB2 PO (20:05)
[2018-10-28] MEDS ORDERED: VRAY3CAP PO (20:05)
[2018-10-28 20:27] LABS: HEMATOCRIT 41.8 % (36.0-47.0); HEMOGLOBIN 14.1 g/dl (12.0-15.5); MEAN CORPUSCULAR HEMOGLOBIN 30.5 pg (27.0-33.0); MEAN CORPUSCULAR HGB CONC 33.7 g/dl (32.0-36.5); MEAN CORPUSCULAR VOLUME 90.3 fl (80.0-96.0); PLATELET COUNT, AUTOMATED 272 10^3/uL (150-450); RED BLOOD COUNT 4.63 10^6/uL (4.00-5.40); WHITE BLOOD COUNT 9.9 10^3/uL (4.0-10.0)
[2018-10-28 20:57] LABS: AMPHETAMINES LEVEL URINE NEGATIVE (NEGATIVE); BARBITURATES URINE NEGATIVE (NEGATIVE); BENZODIAZEPINES URINE NEGATIVE (NEGATIVE); CANNABINOIDS URINE NEGATIVE (NEGATIVE); COCAINE METABOLITE URINE NEGATIVE (NEGATIVE); METHADONE URINE NEGATIVE (NEGATIVE); OPIATES URINE NEGATIVE (NEGATIVE); PHENCYCLIDINE URINE NEGATIVE (NEGATIVE)
[2018-10-28 20:58] LABS: HCG, SERUM QUALITATIVE NEGATIVE (NEGATIVE)
[2018-10-28 21:06] LABS: ACETAMINOPHEN LEVEL < 2.0 UG/ML (10.0-30.0); ALBUMIN 3.7 GM/DL (3.2-5.2); ALT/SGPT 49 U/L (12-78); BILIRUBIN,DIRECT 0.1 MG/DL (0.0-0.2); BILIRUBIN,TOTAL 0.4 MG/DL (0.2-1.0); BLOOD UREA NITROGEN 14 MG/DL (7-18); CARBON DIOXIDE LEVEL 24 MEQ/L (21-32); CHLORIDE LEVEL 109 MEQ/L (98-107); CREATININE FOR GFR 0.84 MG/DL (0.55-1.30); ETHYL ALCOHOL (ETHANOL) < 0.003 % (0.000-0.010); GLOMERULAR FILTRATION RATE > 60.0 (>60); GLUCOSE, FASTING 88 MG/DL (70-100); POTASSIUM SERUM 3.7 MEQ/L (3.5-5.1); SALICYLATE LEVEL 3.3 MG/DL (5.0-30.0); SODIUM LEVEL 141 MEQ/L (136-145); TOTAL PROTEIN 7.2 GM/DL (6.4-8.2)
[2018-10-28] MEDS ORDERED: lamoTRIgine 100MG TAB PO ONE (21:30)
[2018-10-28] MEDS ORDERED: PROPRANOLOL 10 MG TAB PO ONE (21:30)
[2018-10-28] MEDS ORDERED: ACETAMINOPHEN TAB 650MG DOSE (2X325MG) PO ONE (21:45)
[2018-10-28] MEDS ORDERED: ALPRAZolam 0.5 MG TAB PO ONE (21:45)
[2018-10-28] MEDS ORDERED: ACETAMINOPHEN TAB 650MG DOSE (2X325MG) PO PRN (22:00)
[2018-10-28] MEDS ORDERED: MOM 30ML SUSPENSION UDC PO PRN (22:00)
[2018-10-28] MEDS ORDERED: MAALOX 30 ML SUSP *UDC PO PRN (22:00)
[2018-10-28] MEDS ORDERED: LAMI1TAB9 PO (22:09)
[2018-10-28] MEDS ORDERED: ZANA4TAB PO (22:48)
[2018-10-28] MEDS ORDERED: IBUP1TAB6 PO (22:48)
[2018-10-28] MEDS ORDERED: MELO15TA28 PO (22:48)
[2018-10-29 00:50] VITALS: BP 122/75
[2018-10-29] MEDS: traZODone 50 MG TAB PO PRN (01:39)
[2018-10-29 06:49] VITALS: BP 105/51
[2018-10-29] MEDS ORDERED: NICOTINE 14 MG/24 HR TRANSDERMAL TD SCH (09:00)
--- NOTE | 2018-10-29 14:11 | MHHPEPDOC ---
General Date Of Admission: Oct 28, 2018 Legal Status: 9.27 Chief Complaint "I'm having thoughts of suicide." History of Present Illness HISTORY OF THE PRESENT ILLNESS: Patient is a 28 -year-old [place]ian, female, with a history of bipolar d/o with psychosis, 3 previous SA, 5 total psych hospitalizations who was brought in under 9.41 by [facility] after were called by with pt and he were arguing and when PD arrived pt made suicidal and homicidal threats toward her in front of them per ED. Pt stated in the the ED that she'd "probably use a knife but not sure" and that "I just don't care about life anymore." Pt endorsed financial stress in the ED and stated she was arguing with her b/c she believes he stole $1500 from her bank account. She endorsed depression, anhedonia, low appetite, and irregular sleep in the ED. She had not taken her meds since 10/27/18 pre ED. Psychiatric Review of Systems Depression (2 or more weeks): depressed mood, feelings of worthlesness, suicidal thoughts Danielle (4 or more days of): denies Psychosis: denies Anxiety: situational anxiety, stressor related anxiety Anxiety/ 6 months or more of: restlessness, keyed up, difficulty concentrating, irritability Past Psychiatric History Previous Psychiatric Diagnosis: Bipolar disorder, depressed with psychotic features. Mental health problems since 11y/o Previous Psychiatric Admissions: admission [facility] 11/2017 for bipolar d/o with psychosis, 4 total hospitalizations, 3 in [place] for SA Suicide Attempts: 3 previous SA in [place] Psychiatric Follow-up: . Psychiatric medications: depakote caused N/V, seroquel caused wt gain in past. Currently on Vraylar 3mg daily, inderal 10mg tid, xanax 1mgm tid prn anxiety, lamictal 200mg bid Past Medical History Medical Problems Back pain, sciatic nerve pain, asthma, vit D def, rt ACL tear Head Injury: No Seizures: No Hospitalizations: Yes (facial cellulitis) Surgeries: Yes (tubal ligation) Family Medical/Psychiatric HX Medical Problems denies Psychiatric Disorders: No Addiction: No Suicide Attemps/Completions: No Addiction History denies Social History Childhood: born in [place], [place] but raised in [place], 2 parent home, 2 sister's and 1 brother, family remain supportive, good childhood Abuse/Trauma:denies Current Living Situation: Living in [place] since 03/2017 with with and 5 kids Education: dropped out of high school in the 12th grade. 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, now of SSDI Social Support: family, sister living in [place] too Legal: denies Marital: , 5 children, 3 of them with her Mental Status Examination General Appearance: disheveled, appears stated age, hospital scubs/clothing Build: average Demeanor: average, other (reactive and irritable) Eye Contact: fair Activity: anxious, other (reactive/irritable) Behavior: cooperative (at first), uncooperative (left room angry slamming door regarding d/c xanax) Speech: clear, spontaneous, reg/rate,rhythm,volume, other (blunt) Mood: depressed, anxious, angry, irritable, other (reactive) Mood alight Affect: full, appropriate, labile, anxious, other (reactive/irritable) Thought Process: logical/linear, depressed, intact Thought Content (Delusions): none reported, denies SI, HI, AVH (but stated she didn't want to kill her "just jump on him") Thought Content (Other): none reported, appropriate Thought Content (Aggressive): none reported Perception (Hallucinations): none reported Perception (Other): none reported Cognition (Impairment of): none reported Cognition(Intelligence Est.): average Oriented: Awake, Alert, Oriented times three Insight: fair Judgment: Fair Psychosis: Denies Diagnoses Adjustment d/o with anxiety/agitation Bipolar I d/o - stable (hx of depression w/psychosis) Intermittent explosive d/o A-FIB/CHADSVASC A-FIB History Current/History of A-Fib/PAF?: No Current PO Anticoag Therapy: No Treatment Treatment ordered: NONE Reason Anticoagulant not given: Not indicated/[id number] Assessment Pt seen and states she's still feels depressed with anxiety and spontaneous anger. Asking to restart her medications to help. Takes Vraylar outpatient but not sure if it's doing anything. Would like something to help her with controlling her anger and doesn't like it when she gets angry as has 5 kids and doesn't want to be angry around them and feels depressed when she does get angry. Agreeable to d/c vraylar as pt has never had danielle before, discussed use of haldol for intermittent explosive d/o and agreeable, risks/benefits discussed. Pt became angry and left the room slamming the door when told her xanax was going to be discontinued due to it being a poor treatment of anxiety and highly addictive. Prior to leaving she was pleasant and cooperative. Denied SI/HI but stated she didn't want to kill her "just jump on him." Is talking with him on the phone but states "I cursed him out." States she tr ied to press charges against her for the money theft but couldn't due to them being ([place] but police are conducting an investation into theft, encouraged to call the bank and request investigation/making theft claim to them for possible reimbursement. Initial Treatment Plan 1. Patient was admitted on a 9.39 status. 2. Complete history was obtained. 3. With patients permission, family will be contacted and database will be expanded. 4. Patients medication regimen will be reviewed and changed accordingly. 5. Patient will be provided with protected environment. 6. Patient will be treated with individual, group, and milieu therapies. 7. Patient will receive supportive psych-education. 8. Discharge planning will commence immediately. 9. Outpatient follow-up treatment will be strongly recommended. 10. The initial treatment plan will focus initially on: * Depression. * Risk for suicide. * Substance abuse. 11. continue lamicatal, d/c xanax, ativan qtid prn anxiety, haldol 5mg tid for agitation (Vraylar not on hosp formulary) ESTIMATED LENGTH OF STAY: 5-7 DAYS. TIME SPENT COUNSELING AND COORDINATING INITIAL CARE: 60 minutes. Vital Signs Vital Signs Date Time Temp Pulse Resp B/P (MAP) Pulse Ox O2 Delivery O2 Flow Rate FiO2 10/29/18 06:49 98.9 105/51 (69) 10/29/18 00:50 68 14 99 Laboratory Data 24H Labs Laboratory Tests 2 10/28/18 20:11: Nucleated Red Blood Cells % (auto) 0.0, Anion Gap 8, Glomerular Filtration Rate > 60.0, Calcium Level 9.0, Aspartate Amino Transf (AST/SGOT) 17, Alanine Aminotransferase (ALT/SGPT) 49, Alkaline Phosphatase 114, Total Bilirubin 0.4, Direct Bilirubin 0.1, Total Protein 7.2, Albumin 3.7, Albumin/Globulin Ratio 1.06, Thyroid Stimulating Hormone (TSH) 1.610, Human Chorionic Gonadotropin, Qual NEGATIVE, Salicylates Level 3.3L, Urine Amphetamines Screen NEGATIVE, Urine Benzodiazepines Screen NEGATIVE, Urine Opiates Screen NEGATIVE, Urine Methadone Screen NEGATIVE, Acetaminophen Level < 2.0L, Urine Barbiturates Screen NEGATIVE, Urine Phencyclidine Screen NEGATIVE, Urine Cocaine Metabolite Screen NEGATIVE, Urine Cannabinoids Screen NEGATIVE, Ethyl Alcohol Level < 0.003 CBC/BMP Laboratory Tests 10/28/18 20:11 Red Blood Count 4.63, Mean Corpuscular Volume 90.3, Mean Corpuscular Hemoglobin 30.5, Mean Corpuscular Hemoglobin Concent 33.7, Red Cell Distribution Width 14.0 Medications Scheduled Cariprazine HCl (Vraylar) 3 Mg Capsule, 3 MG PO DAILY, (Reported) Lamotrigine (Lamictal) 200 Mg Tablet, 200 MG PO BID, (Reported) Meloxicam (Meloxicam) 15 Mg Tablet, 15 MG PO DAILY, (Reported) Propranolol HCl (Propranolol HCl) 10 Mg Tab, 10 MG PO TID, (Reported) Scheduled PRN Albuterol Sulfate (Ventolin Hfa) 108 Mcg/Act Aer, 2 PUFFS INH QID PRN for SHORTNESS OF BREATH, (Reported) Alprazolam (Xanax) 1 Mg Tablet, 1 MG PO TID PRN for ANXIETY, (Reported) Ibuprofen (Ibuprofen) 600 Mg Tablet, 600 MG PO Q6H PRN for PAIN, (Reported) Tizanidine HCl (Zanaflex) 4 Mg Tablet, 4 MG PO QHS PRN for MUSCLE SPASMS, (Reported) Allergies Coded Allergies: aripiprazole (Verified Allergy, Intermediate, AGITATION, 10/28/18) Fontenelle (Verified Allergy, Mild, Rash, 07/09/17) HÉCTOR SMALL DO Oct 29, 2018 2:03 pm
[2018-10-29] MEDS ORDERED: ALBUTEROL 90 MCG/ACT 8GM HFA INHALER INH PRN (14:15)
[2018-10-29] MEDS ORDERED: IBUPROFEN 800 MG TAB PO PRN (14:15)
[2018-10-29] MEDS: LORazepam 1 MG TAB PO PRN (14:34)
[2018-10-29] MEDS: MELOXICAM (MOBIC) 7.5 MG TAB PO SCH (14:35)
[2018-10-29] MEDS: PROPRANOLOL 10 MG TAB PO SCH ×2 (16:05→21:00)
[2018-10-29] MEDS: HALOPERIDOL 5 MG TAB PO SCH ×2 (16:05→21:00)
[2018-10-29] MEDS: NICOTINE POLACRILEX 2 MG GUM PO PRN (16:44)
[2018-10-29 18:18] VITALS: BP 134/60
--- NOTE | 2018-10-29 19:41 | HPEPDOC ---
General Date of Admission Oct 28, 2018 at 21:57 Date of Service: Oct 29, 2018 Chief Complaint The patient is a 28-year-old female admitted with a reason for visit of Unspecified Depressive D/O. History of Present Illness 28f hx of bipolar, asthma, chronic back pain admitted to [facility] for suicidal and homicidal ideation. Pt reports feeling well medically. She has chronic back pain which is unchanged from baseline. She has asthma for which she takes her rescue inhaler on average 1-2x per month. a full ros was performed and negative except as above Home Medications Scheduled Cariprazine HCl (Vraylar) 3 Mg Capsule, 3 MG PO DAILY, (Reported) Lamotrigine (Lamictal) 200 Mg Tablet, 200 MG PO BID, (Reported) Meloxicam (Meloxicam) 15 Mg Tablet, 15 MG PO DAILY, (Reported) Propranolol HCl (Propranolol HCl) 10 Mg Tab, 10 MG PO TID, (Reported) Scheduled PRN Albuterol Sulfate (Ventolin Hfa) 108 Mcg/Act Aer, 2 PUFFS INH QID PRN for SHORTNESS OF BREATH, (Reported) Alprazolam (Xanax) 1 Mg Tablet, 1 MG PO TID PRN for ANXIETY, (Reported) Ibuprofen (Ibuprofen) 600 Mg Tablet, 600 MG PO Q6H PRN for PAIN, (Reported) Tizanidine HCl (Zanaflex) 4 Mg Tablet, 4 MG PO QHS PRN for MUSCLE SPASMS, (Reported) Allergies Coded Allergies: aripiprazole (Verified Allergy, Intermediate, AGITATION, 10/28/18) Sinan (Verified Allergy, Mild, Rash, 07/09/17) Past Medical History Medical History asthma Social History * Smoker: Denies Alcohol: Denies Drugs: denies A-FIB/CHADSVASC A-FIB History Current/History of A-Fib/PAF?: No Current PO Anticoag Therapy: No Age/Risk Factor Scoring CHADSVASC: CHADSVASC Response (Comments) Value Age Risk Factor Age < 65 years old 0 Gender Risk Factor Female 1 Hx of CHF No 0 Hx of HTN No 0 Hx of Stroke/TIA/or VTE No 0 Hx of Diabetes No 0 Hx of Vascular Disease No 0 Total 1 Treatment Treatment ordered: NONE Reason Anticoagulant not given: Not indicated/[id number] Physical Examination General Exam: Positive: Alert, No Acute Distress Eye Exam: Positive: PERRLA, Conjunctiva & lids normal, EOMI; Negative: Sclera icteric ENT Exam: Positive: Atraumatic, Mucous membr. moist/pink, Pharynx Normal Neck Exam: Positive: Supple; Negative: JVD, thyromegaly Chest Exam: Positive: Clear to auscultation, Normal air movement Heart Exam: Positive: Rate Normal, Regular Rhythm, Normal S1, Normal S2; Negative: Murmurs, Rubs Telemetry: Positive: No significant arrhythmia Abdomen Exam: Positive: Normal bowel sounds, Soft; Negative: Tenderness, Hepatospenomegaly Extremity Exam: Positive: Normal pulses; Negative: Clubbing, Cyanosis, Edema Skin Exam: Positive: Nl turgor and temperature; Negative: Breakdown, Lesion Neuro Exam: Positive: Normal Gait, Normal Speech, Cranial Nerves 3-12 NL, Reflexes 2+ Psych Exam: Positive: Mental status NL, Oriented x 3; Negative: Mood NL Vital Signs Vital Signs Date Time Temp Pulse Resp B/P (MAP) Pulse Ox O2 Delivery O2 Flow Rate FiO2 10/29/18 18:18 98.6 79 16 134/60 (84) 10/29/18 00:50 99 Laboratory Data Labs 24H Laboratory Tests 2 10/28/18 20:11: Nucleated Red Blood Cells % (auto) 0.0, Anion Gap 8, Glomerular Filtration Rate > 60.0, Calcium Level 9.0, Aspartate Amino Transf (AST/SGOT) 17, Alanine A minotransferase (ALT/SGPT) 49, Alkaline Phosphatase 114, Total Bilirubin 0.4, Direct Bilirubin 0.1, Total Protein 7.2, Albumin 3.7, Albumin/Globulin Ratio 1.06, Thyroid Stimulating Hormone (TSH) 1.610, Human Chorionic Gonadotropin, Qual NEGATIVE, Salicylates Level 3.3L, Urine Amphetamines Screen NEGATIVE, Urine Benzodiazepines Screen NEGATIVE, Urine Opiates Screen NEGATIVE, Urine Methadone Screen NEGATIVE, Acetaminophen Level < 2.0L, Urine Barbiturates Screen NEGATIVE, Urine Phencyclidine Screen NEGATIVE, Urine Cocaine Metabolite Screen NEGATIVE, Urine Cannabinoids Screen NEGATIVE, Ethyl Alcohol Level < 0.003 CBC/BMP Laboratory Tests 10/28/18 20:11 Red Blood Count 4.63, Mean Corpuscular Volume 90.3, Mean Corpuscular Hemoglobin 30.5, Mean Corpuscular Hemoglobin Concent 33.7, Red Cell Distribution Width 14.0 Assessment/Plan 28f admitted for depression depression continue management by primary psych team asthma stable continue prn albuterol back pain recent LESI tylenol prn can add nsaid if needed Plan / VTE VTE Prophylaxis Ordered?: No PARVEZ PATEL MD Oct 29, 2018 19:41
[2018-10-29] MEDS ORDERED: tiZANidine 4 MG TAB PO PRN (21:00)
[2018-10-30 06:48] VITALS: BP 90/68
[2018-10-30] MEDS: MELOXICAM (MOBIC) 7.5 MG TAB PO SCH (08:24)
[2018-10-30] MEDS: HALOPERIDOL 5 MG TAB PO SCH ×3 (08:24→21:31)
[2018-10-30] MEDS: LORazepam 1 MG TAB PO PRN ×2 (08:25→18:54)
[2018-10-30] MEDS: PROPRANOLOL 10 MG TAB PO SCH ×3 (08:25→21:30)
--- NOTE | 2018-10-30 09:00 | MHIPNPDOC ---
[facility] Progress Note Progress Note DATE OF SERVICE: 10/30/18 HISTORY: Patient is a 28 -year-old [place]inamese, female, with a history of bipolar d/o with psychosis, 3 previous SA, 5 total psych hospitalizations who was brought in under 9.41 by [employer] after were called by with pt and he were arguing and when PD arrived pt made suicidal and homicidal threats toward her in front of them per ED. Pt stated in the the ED that she'd "probably use a knife but not sure" and that "I just don't care about life anymore." Pt endorsed financial stress in the ED and stated she was arguing with her b/c she believes he stole $1500 from her bank account. She endorsed depression, anhedonia, low appetite, and irregular sleep in the ED. She had not taken her meds since 10/27/18 pre ED. VITAL SIGNS: See below. NEW TEST RESULTS: See below. CURRENT MEDICATIONS: See below. MENTAL STATUS EXAMINATION: General Appearance: disheveled, appears stated age, hospital scubs/clothing Build: average Demeanor: average, other (reactive and irritable) Eye Contact: fair Activity: less anxious, other (reactive/irritable) Behavior: cooperative Speech: clear, spontaneous, reg/rate,rhythm,volume, other (blunt) Mood: less depressed, anxious, angry, irritable, other (reactive) Mood "no different" Affect: full, appropriate, less labile, less anxious, other (react chivo/irritable) Thought Process: logical/linear, less depressed, intact Thought Content (Delusions): none reported, denies SI, HI, AVH or thoughts to harm or herself Thought Content (Other): none reported, appropriate Thought Content (Aggressive): none reported Perception (Hallucinations): none reported Perception (Other): none reported Cognition (Impairment of): none reported Cognition(Intelligence Est.): average Oriented: Awake, Alert, Oriented times three Insight: fair Judgment: Fair Psychosis: Denies DIAGNOSES: Adjustment d/o with anxiety/agitation Bipolar I d/o - stable (hx of depression w/psychosis) Intermittent explosive d/o ASSESSMENT:Pt seen and states that her mood is "no different" and still endorses spontaneous anger that is situational. States doesn't feel any change with haldol and agreeable to increase. Ativan beneficial for anxiety prn. States her is still making her angry when she speaks to him on the phone but appears to be managing her anger better and denies HI toward him or thoughts to harm him. States she's being social on the milieu which is beneficial. States she slept well last night. Feels she is tolerating her medications and all but haldol are beneficial. She is attending groups and finding them helpful. She deniesSI/HI, hallucinations, delusions. Pt feels safe here. MANAGEMENT PLAN: increase haldol medications: lamicatal 200mg bid ativan qtid prn anxiety haldol 10mg tid for agitation TIME SPENT: 30 minutes. Vital Signs Vital Signs Date Time Temp Pulse Resp B/P (MAP) Pulse Ox O2 Delivery O2 Flow Rate FiO2 10/30/18 08:25 84 132/65 10/30/18 06:48 98.0 12 10/29/18 00:50 99 Current Medications Current Medications Medications (Trade) Dose Ordered Sig/Elif Route PRN Reason Start Time Stop Time Status Last Admin Dose Admin Acetaminophen (Tylenol Tab) 650 mg Q6HP PRN PO HEADACHE or DISCOMFORT 10/28/18 22:00 Al Hydrox/Mg Hydrox/Simethicone (Mylanta) 30 ml Q4HP PRN PO HEARTBURN/INDIGESTION 10/28/18 22:00 Albuterol Sulfate (Proventil, Ventolin Hfa) 2 puff QID PRN INH SHORTNESS OF BREATH 10/29/18 14:15 Haloperidol (Haldol) 5 mg TID PO 10/29/18 16:00 10/30/18 08:24 Home Med (Med Rec Complete!) ASDIRECTED XX 10/28/18 23:00 10/28/18 23:00 DC Ibuprofen (Advil) 800 mg Q6HP PRN PO MODERATE PAIN (PS 5-7) 10/29/18 14:15 Lorazepam (Ativan) 1 mg TIDP PRN PO ANXIETY 10/29/18 14:15 10/30/18 08:25 Magnesium Hydroxide (Milk Of Magnesia) 30 ml DAILYPRN PRN PO CONSTIPATION 10/28/18 22:00 Meloxicam (Mobic) 15 mg DAILY PO 10/29/18 09:00 10/30/18 08:24 Nicotine (Nicoderm Cq 14mg) 1 patch DAILY TD 8/3/19 09:00 10/29/18 16:21 DC 10/29/18 09:49 Nicotine (Nicorette) 2 mg Q2HP PRN PO NICOTINE WITHDRAWAL 10/29/18 16:30 10/29/18 16:44 Propranolol HCl (Inderal) 10 mg TID PO 10/29/18 16:00 10/30/18 08:25 Tizanidine HCl (Zanaflex) 4 mg QHS PRN PO MUSCLE SPASMS 10/29/18 21:00 Trazodone HCl (Desyrel) 50 mg QHSP PRN PO INSOMNIA 10/28/18 22:00 10/29/18 01:39 Allergies Coded Allergies: aripiprazole (Verified Allergy, Intermediate, AGITATION, 10/28/18) Sinan (Verified Allergy, Mild, Rash, 07/09/17) HÉCTOR SMALL DO Oct 30, 2018 9:00 am
[2018-10-30] MEDS: NICOTINE POLACRILEX 2 MG GUM PO PRN (17:47)
[2018-10-30 18:20] VITALS: BP 109/56
[2018-10-30] MEDS: traZODone 50 MG TAB PO PRN (21:31)
[2018-10-31 06:50] VITALS: BP 106/62
[2018-10-31] MEDS: MELOXICAM (MOBIC) 7.5 MG TAB PO SCH (09:16)
[2018-10-31] MEDS: PROPRANOLOL 10 MG TAB PO SCH ×3 (09:16→20:56)
[2018-10-31] MEDS: HALOPERIDOL 5 MG TAB PO SCH ×3 (09:16→20:56)
--- NOTE | 2018-10-31 10:58 | MHIPNPDOC ---
[facility] Progress Note Progress Note DATE OF SERVICE: 10/31/18 HISTORY: Patient is a 28 -year-old [place], female, with a history of bipolar d/o with psychosis, 3 previous SA, 5 total psych hospitalizations who was brought in under 9.41 by [employer] after were called by with pt and he were arguing and when PD arrived pt made suicidal and homicidal threats toward her in front of them per ED. Pt stated in the the ED that she'd "probably use a knife but not sure" and that "I just don't care about life anymore." Pt endorsed financial stress in the ED and stated she was arguing with her b/c she believes he stole $1500 from her bank account. She endorsed depression, anhedonia, low appetite, and irregular sleep in the ED. She had not taken her meds since 10/27/18 pre ED. VITAL SIGNS: See below. NEW TEST RESULTS: See below. CURRENT MEDICATIONS: See below. MENTAL STATUS EXAMINATION: General Appearance: disheveled, appears stated age, hospital scrubs/clothing Build: average Demeanor: average Eye Contact: good Activity: less anxious Behavior: cooperative Speech: clear, spontaneous, reg/rate,rhythm,volume, other (blunt) Mood: euthymic, less anxious Mood "good" Affect: full, appropriate, less labile, less anxious (smiling) Thought Process: logical/linear, less depressed, intact Thought Content (Delusions): none reported, denies SI, HI, AVH or thoughts to harm or herself Thought Content (Other): none reported, appropriate Thought Content (Aggressive): none reported Perception (Hallucinations): none reported Perception (Other): none reported Cognition (Impairment of): none reported Cognition(Intelligence Est.): average Oriented: Awake, Alert, Oriented times three Insight: fair Judgment: Fair Psychosis: Denies DIAGNOSES: Adjustment d/o with anxiety/agitation Bipolar I d/o - stable (hx of depression w/psychosis) Intermittent explosive d/o ASSESSMENT:Pt seen and states that her mood is "better" and has made up with her over the phone with her last night. States she's finding increase in haldol very beneficial for impulsive anger that is situational. Smiling today and in groups. Ativan beneficial for anxiety prn. Denies HI toward her or thoughts to harm him. States she's being social on the milieu which is beneficial. States she slept well last night. Feels she is tolerating her medications and tolerating well. She is attending groups and finding them helpful. She denies SI/HI, hallucinations, delusions. Pt feels safe here. MANAGEMENT PLAN: d/c tomorrow medications: lamicatal 200mg bid ativan qtid prn anxiety haldol 10mg tid for agitation TIME SPENT: 30 minutes Vital Signs Vital Signs Date Time Temp Pulse Resp B/P (MAP) Pulse Ox O2 Delivery O2 Flow Rate FiO2 10/31/18 09:16 96 128/68 10/31/18 06:50 99.7 12 10/29/18 00:50 99 Current Medications Current Medications Medications (Trade) Dose Ordered Sig/Elif Route PRN Reason Start Time Stop Time Status Last Admin Dose Admin Acetaminophen (Tylenol Tab) 650 mg Q6HP PRN PO HEADACHE or DISCOMFORT 10/28/18 22:00 Al Hydrox/Mg Hydrox/Simethicone (Mylanta) 30 ml Q4HP PRN PO HEARTBURN/INDIGESTION 10/28/18 22:00 Albuterol Sulfate (Proventil, Ventolin Hfa) 2 puff QID PRN INH SHORTNESS OF BREATH 10/29/18 14:15 Haloperidol (Haldol) 5 mg TID PO 10/29/18 16:00 10/31/18 09:16 Home Med (Med Rec Complete!) ASDIRECTED XX 10/28/18 23:00 10/28/18 23:00 DC Ibuprofen (Advil) 800 mg Q6HP PRN PO MODERATE PAIN (PS 5-7) 10/29/18 14:15 10/30/18 16:06 Lorazepam (Ativan) 1 mg TIDP PRN PO ANXIETY 10/29/18 14:15 10/30/18 18:54 Magnesium Hydroxide (Milk Of Magnesia) 30 ml DAILYPRN PRN PO CONSTIPATION 10/28/18 22:00 Meloxicam (Mobic) 15 mg DAILY PO 10/29/18 09:00 10/31/18 09:16 Nicotine (Nicoderm Cq 14mg) 1 patch DAILY TD 10/29/18 09:00 10/29/18 16:21 DC 10/29/18 09:49 Nicotine (Nicorette) 2 mg Q2HP PRN PO NICOTINE WITHDRAWAL 10/29/18 16:30 10/30/18 17:47 Propranolol HCl (Inderal) 10 mg TID PO 10/29/18 16:00 10/31/18 09:16 Tizanidine HCl (Zanaflex) 4 mg QHS PRN PO MUSCLE SPASMS 10/29/18 21:00 Trazodone HCl (Desyrel) 50 mg QHSP PRN PO INSOMNIA 10/28/18 22:00 10/30/18 21:31 Allergies Coded Allergies: aripiprazole (Verified Allergy, Intermediate, AGITATION, 10/28/18) Sinan (Verified Allergy, Mild, Rash, 07/09/17) HÉCTOR SMALL DO Oct 31, 2018 10:58
[2018-10-31] MEDS: LORazepam 1 MG TAB PO PRN ×2 (12:52→22:50)
[2018-10-31] MEDS: NICOTINE POLACRILEX 2 MG GUM PO PRN (17:36)
[2018-10-31 18:16] VITALS: BP 122/68
[2018-10-31] MEDS: traZODone 50 MG TAB PO PRN (20:56)
--- NOTE | 2018-10-31 20:59 | ECGEPIP ---
[facility] Test Date: 2018-10-30 Pat Name: ASHLEY WEBER Department: Room: [place] [address] Gender: Female Vegetable Trimmer: YOANA : [id number] Requested By: HÉCTOR Rosas Order Number: [id number] Reading MD: German Gasca Measurements Intervals Andrews Rate: 52 P: 49 KS: 154 QRS: 33 QRSD: 94 T: 23 QT: 422 QTc: 394 Interpretive Statements Sinus bradycardia with sinus arrhythmia Normal EKG No significant change when compared to prior tracing of 05/14/2018 Electronically Signed on 10-31-2018 20:58:52 EDT by German Gasca
[2018-11-01] MEDS ORDERED: traZODone 100 MG TAB PO ONE
[2018-11-01 06:30] VITALS: BP 133/62
[2018-11-01 08:40] VITALS: BP 123/62
[2018-11-01] MEDS: MELOXICAM (MOBIC) 7.5 MG TAB PO SCH (08:40)
[2018-11-01] MEDS: HALOPERIDOL 5 MG TAB PO SCH (08:40)
[2018-11-01] MEDS: PROPRANOLOL 10 MG TAB PO SCH (08:40)
[2018-11-01] MEDS ORDERED: HALO5TA PO (08:41)
[2018-11-01] MEDS ORDERED: PROP10TA56 PO (08:41)
[2018-11-01] MEDS ORDERED: LAMI1TAB9 PO (08:41)
--- NOTE | 2018-11-01 08:42 | MHDSPDOC ---
[facility] Discharge Summary Discharge Summary DATE OF ADMISSION: Oct 28, 2018 at 9:57 pm DATE OF DISCHARGE: Nov 01, 2018 DISCHARGE DIAGNOSES: Adjustment d/o with anxiety/agitation Bipolar I d/o - stable (hx of depression w/psychosis) Intermittent explosive d/o REASON FOR ADMISSION: Patient is a 28 -year-old Citizen Of [place], female, with a history of bipolar d/o with psychosis, 3 previous SA, 5 total psych hospitalizations who was brought in under 9.41 by [facility] after were called by with pt and he were arguing and when PD arrived pt made suicidal and homicidal threats toward her in front of them per ED. Pt stated in the the ED that she'd "probably use a knife but not sure" and that "I just don't care about life anymore." Pt endorsed financial stress in the ED and stated she was arguing with her b/c she believes he stole $1500 from her bank account. She endorsed depression, anhedonia, low appetite, and irregular sleep in the ED. She had not taken her meds since 10/27/18 pre ED. CONSULTANTS INVOLVED: none TREATMENT AND PROGRESS ON THE UNIT : Pt was admitted to [facility], seen for psychiatric assessment and started on haldol 10mg tid for agitation/anger. She was restarted on her lamictal 200mg bid for bipolar depression. She was provided ativan 1mg qtid prn anxiety and trazodone 50mg qhs prn insomnia. Pt found her medications beneficial and tolerated them well. She attended groups daily during her stay. Her symptoms improved with treatment. On day of d ischarge she denied depression, anxiety, insomnia, SI/HI, hallucinations, delusions. She was discharged home after family meeting with her with follow-up at [facility]. She felt safe for discharge. DISCHARGE ASSESSMENT: Pt seen and states that her mood is "good" and has made up with her over the phone with her last night, looking forward to going to him and her kids that she misses today. States she's finding haldol very beneficial for impulsive anger that is situational. Smiling today and in groups. Ativan beneficial for anxiety prn. Denies HI toward her or thoughts to harm him. States she's being social on the milieu which is beneficial. States she slept well last night. Feels she is tolerating her medi cations and tolerating well. She is attending groups and finding them helpful. She denies depression, anxiety, insomnia, SI/HI, hallucinations, delusions. Pt feels safe here. MENTAL STATUS EXAMINATION ON DISCHARGE: General Appearance: disheveled, appears stated age, own clothing Build: average Demeanor: average Eye Contact: good Activity: average Behavior: cooperative Speech: clear, spontaneous, reg/rate,rhythm,volume, other (blunt) Mood: euthymic, full range Mood "good" Affect: full, appropriate, congruent Thought Process: logical/linear, intact Thought Content (Delusions): none reported, denies SI, HI, AVH and denies thoughts to harm or herself Thought Content (Other): none reported, appropriate Thought Content (Aggressive): none reported Perception (Hallucinations): none reported Perception (Other): none reported Cognition (Impairment of): none reported Cognition(Intelligence Est.): average Oriented: Awake, Alert, Oriented times three Insight: good Judgment: good Psychosis: Denies MEDICATIONS ON DISCHARGE: lamicatal 200mg bid haldol 10mg tid for agitation PLAN/FOLLOWUP ARRANGEMENTS:D/c home with follow-up at [facility]. The amount of time spent in the coordination of care for this patient was approximately 30 minutes. Vital Signs/I&Os Vital Signs Date Time Temp Pulse Resp B/P (MAP) Pulse Ox O2 Delivery O2 Flow Rate FiO2 11/01/18 06:30 96.1 69 14 133/62 (85) 10/29/18 00:50 99 Medications Scheduled Cariprazine HCl (Vraylar) 3 Mg Capsule, 3 MG PO DAILY, (Reported) Lamotrigine (Lamictal) 200 Mg Tablet, 200 MG PO BID, (Reported) Meloxicam (Meloxicam) 15 Mg Tablet, 15 MG PO DAILY, (Reported) Propranolol HCl (Propranolol HCl) 10 Mg Tab, 10 MG PO TID, (Reported) Scheduled PRN Albuterol Sulfate (Ventolin Hfa) 108 Mcg/Act Aer, 2 PUFFS INH QID PRN for SHORTNESS OF BREATH, (Reported) Alprazolam (Xanax) 1 Mg Tablet, 1 MG PO TID PRN for ANXIETY, (Reported) Ibuprofen (Ibuprofen) 600 Mg Tablet, 600 MG PO Q6H PRN for PAIN, (Reported) Tizanidine HCl (Zanaflex) 4 Mg Tablet, 4 MG PO QHS PRN for MUSCLE SPASMS, (Reported) Allergies Coded Allergies: aripiprazole (Verified Allergy, Intermediate, AGITATION, 10/28/18) Orr (Verified Allergy, Mild, Rash, 07/09/17) HÉCTOR SMALL DO Nov 01, 2018 8:42 am
[2018-11-01] MEDS: NICOTINE POLACRILEX 2 MG GUM PO PRN (11:50)
== END 2018-11-01 12:49 | disposition home or self-care (01) | DRG 755 ==
LOC: M ED 19:38 → M ED INP 21:57 → M PSY 21:57
PROVIDERS: ADMIT Psychiatry & Neurology Psychiatry; ATTEND Psychiatry & Neurology Psychiatry
DX: F43.22 Adjustment disorder with anxiety (principal); R45.850 Homicidal ideations; R45.851 Suicidal ideations; F31.9 Bipolar disorder, unspecified; F63.81 Intermittent explosive disorder; Z79.899 Other long term (current) drug therapy; Z88.8 Allergy status to other drugs, medicaments and biological substances; Z91.018 Allergy to other foods; J45.909 Unspecified asthma, uncomplicated